=== PATIENT | male | born 1985 | race Caucasian/White ===

== ENCOUNTER 2016-11-18 10:30 | Inpatient (IN) | payer MEDICARE, OTHER ==
[~2016-11-18] VITALS: Ht 170.2 cm; Wt 84.9 kg
[~2016-11-18 10:30] MED LIST: ALBU6.7H INH; ALBU8.5H5 INH; ALPR0.254 PO; ASCO10004 PO; BUTA1CAP60 PO; BUTA1CAP8 PO; CHLO1LIQ PO; CHOL5000 PO; CIPR500T3 PO; CITA20TA5 PO; COLE1TAB4 PO; CYCL-259 PO; DICY20TA3 PO; DOCU-144 PO; DOXY100C2 PO; DOXY100T PO; ESCI20TA10 PO; FLUO20TA25 PO; HYDR-3144 PO; HYDR-3241 PO; IBUP200C PO; LISI5TAB7 PO; LOPE2TAB18 PO; MELA3TAB PO; OFLO5DRO7 OTIC; OMEP-110 PO; ONDA-39 PO; ONDA4TAB7 PO; OXYC5CAP4 PO; PANT40TA5 PO; QUET25TA PO; RIFA200T3 PO; SULF1TAB24 PO; TAMS0.4C2 PO; TOPI100C5 PO; [UNRECOGNIZED DRUG - OTHER] PO
[2016-11-18] MEDS ORDERED: SODIUM CHLORIDE FLUSH 10ML SYR IVF ONE (12:00)
[2016-11-18] MEDS ORDERED: ONDANSETRON 2MG/ML, 2ML IVPush ONE (12:00)
[2016-11-18] MEDS ORDERED: SODIUM CHLORIDE 0.9% 1,000ML IVBOLUS ONE (12:00)
[2016-11-18] MEDS ORDERED: HYDROmorphone 1 MG/ML, 1ML ONE ×2 (12:02→12:58)
[2016-11-18] MEDS ORDERED: ONDANSETRON 2MG/ML, 2ML ONE (12:02)
[2016-11-18] MEDS: HYDROmorphone 1 MG/ML, 1ML IVPush PRN ×2 (12:10→13:08)
[2016-11-18 12:41] LABS: HEMOGLOBIN 14.6 g/dL (13.7-18.0)
[2016-11-18 12:53] LABS: ASPARTATE AMINO TRANSFERASE 16 U/L (15-37); BLOOD UREA NITROGEN 9 mg/dL (7-18)
[2016-11-18 13:15] LABS: PATH.CAST-FLAG NOT PRESENT; SPERM-FLAG PRESENT; SRC-FLAG NOT PRESENT; XTAL-FLAG NOT PRESENT; YLC-FLAG NOT PRESENT
[2016-11-18] MEDS ORDERED: ESCI5TAB7 PO (13:28)
[2016-11-18] MEDS ORDERED: LUBI8CAP3 PO (13:38)
[2016-11-18] MEDS ORDERED: LISI5TAB7 PO (13:39)
[2016-11-18] MEDS ORDERED: LEVOFLOXACIN/PMX 500MG/100ML 100 ML IV ONE (14:14)
[2016-11-18] MEDS ORDERED: OXYcodone/APAP 10/325MG TABLET ONE (14:21)
[2016-11-18] MEDS ORDERED: LEVOFLOXACIN/PMX 500MG/100ML 100 ML ONE (14:21)
[2016-11-18] MEDS ORDERED: OXYcodone/APAP 10/325MG TABLET PO ONE (14:30)
[2016-11-18] MEDS ORDERED: NITROFURANTOIN (MACROBID) 100 MG CAPSULE PO ONE (15:30)
[2016-11-18 16:00] VITALS: BP 131/83
[2016-11-18 17:01] VITALS: BP 131/83
[2016-11-18] MEDS ORDERED: LABETALOL 5MG/ML, 20ML IV PRN (17:30)
[2016-11-18] MEDS ORDERED: BISACODYL 10 MG SUPP PR PRN (17:30)
[2016-11-18] MEDS: HYDROmorphone 2 MG/ML, 1ML IV PRN ×2 (17:55→21:09)
[2016-11-18] MEDS: ENOXAPARIN 40 MG/0.4 ML SQ SCH (17:55)
[2016-11-18] MEDS: LACTOBACILLUS CHEW TABLET PO SCH ×2 (18:10→19:46)
[2016-11-18] MEDS: NS + 20MEQ KCL 1,000 ML IV SCH (18:11)
[2016-11-18 19:15] VITALS: BP 109/72
[2016-11-18] MEDS: SULFAMETH./TRIMETHOPRIM DS 800MG/160MG TABLET PO SCH (19:46)
[2016-11-18] MEDS: FAMOTIDINE 20 MG/2 ML IV SCH (19:46)
[2016-11-18] MEDS ORDERED: ALBUTEROL SULFATE 2.5 MG/3 ML ONE (21:25)
[2016-11-18] MEDS ORDERED: ALBUTEROL SULFATE 2.5 MG/3 ML NPPB PRN (22:00)
[2016-11-19 01:16] VITALS: BP 114/70
[2016-11-19] MEDS: NS + 20MEQ KCL 1,000 ML IV SCH ×4 (03:21→23:27)
[2016-11-19 05:50] LABS: BLOOD UREA NITROGEN 5 mg/dL (7-18)
[2016-11-19 05:53] LABS: ASPARTATE AMINO TRANSFERASE 15 U/L (15-37)
[2016-11-19 07:57] VITALS: BP 113/71
[2016-11-19] MEDS: FLUOXETINE 20 MG CAPSULE PO SCH (08:38)
[2016-11-19] MEDS: SULFAMETH./TRIMETHOPRIM DS 800MG/160MG TABLET PO SCH ×2 (08:38→19:56)
[2016-11-19] MEDS: FAMOTIDINE 20 MG/2 ML IV SCH ×2 (08:38→19:56)
[2016-11-19] MEDS: HYDROmorphone 2 MG/ML, 1ML IV PRN ×5 (08:38→22:39)
[2016-11-19] MEDS: LUBIPROSTONE 8 MCG CAPSULE PO SCH (08:39)
[2016-11-19] MEDS: DOXYCYCLINE 100MG TABLET PO SCH (08:39)
[2016-11-19] MEDS: LACTOBACILLUS CHEW TABLET PO SCH ×3 (08:39→20:08)
[2016-11-19] MEDS: LISINOPRIL 5 MG TABLET PO SCH (08:39)
[2016-11-19] MEDS: TAMSULOSIN 0.4 MG CAP.ER.24H PO SCH (08:39)
[2016-11-19] MEDS: TOPIRAMATE 100 MG PO SCH (09:00)
[2016-11-19] MEDS: ONDANSETRON 2MG/ML, 2ML IVP PRN ×2 (10:17→18:36)
[2016-11-19 14:50] VITALS: BP 120/79
[2016-11-19] MEDS: ENOXAPARIN 40 MG/0.4 ML SQ SCH (18:36)
[2016-11-19 19:10] VITALS: BP 103/68
[2016-11-19] MEDS ORDERED: CALCIUM CARBONATE 500 MG TAB.CHEW PO ONE (22:30)
[2016-11-20 01:46] VITALS: BP 95/55
[2016-11-20] MEDS: HYDROmorphone 2 MG/ML, 1ML IV PRN ×2 (01:52→06:08)
[2016-11-20 05:50] LABS: BLOOD UREA NITROGEN 5 mg/dL (7-18)
[2016-11-20 07:48] VITALS: BP 109/62
[2016-11-20] MEDS ORDERED: ONDANSETRON ODT 4 MG PO PRN (08:00)
[2016-11-20] MEDS ORDERED: PANTOPROZOLE 40MG TABLET PO SCH (08:00)
[2016-11-20] MEDS: TOPIRAMATE 100 MG PO SCH (09:00)
[2016-11-20] MEDS: TAMSULOSIN 0.4 MG CAP.ER.24H PO SCH (09:01)
[2016-11-20] MEDS: LACTOBACILLUS CHEW TABLET PO SCH ×2 (09:01→14:56)
[2016-11-20] MEDS: SULFAMETH./TRIMETHOPRIM DS 800MG/160MG TABLET PO SCH (09:01)
[2016-11-20] MEDS: DOXYCYCLINE 100MG TABLET PO SCH (09:01)
[2016-11-20] MEDS: LUBIPROSTONE 8 MCG CAPSULE PO SCH (09:01)
[2016-11-20] MEDS: FLUOXETINE 20 MG CAPSULE PO SCH (09:01)
[2016-11-20] MEDS: LISINOPRIL 5 MG TABLET PO SCH (09:04)
[2016-11-20 11:34] LABS: IS PT STATUS REG ER OR PRE ER? NO
[2016-11-20] MEDS ORDERED: HYDROcodone/APAP 5/325 TABLET PO PRN (13:30)
[2016-11-20 14:12] VITALS: BP 103/53
[2016-11-20 14:48] LABS: IS PT STATUS REG ER OR PRE ER? NO
[2016-11-20] MEDS ORDERED: SULF1TAB3 PO (15:07)
== END 2016-11-20 17:38 | disposition home or self-care (01) | DRG 690 ==
LOC: ED 13:42 → EDIP 15:19 → 3NE 15:57
DX: N30.90 Cystitis, unspecified without hematuria (principal); F44.9 Dissociative and conversion disorder, unspecified; E87.6 Hypokalemia; F41.1 Generalized anxiety disorder; I10 Essential (primary) hypertension; J45.909 Unspecified asthma, uncomplicated; K21.9 Gastro-esophageal reflux disease without esophagitis; N40.0 Benign prostatic hyperplasia without lower urinary tract symptoms; R10.31 Right lower quadrant pain; E87.8 Other disorders of electrolyte and fluid balance, not elsewhere classified; F32.9 Major depressive disorder, single episode, unspecified; M54.5 Low back pain; G43.909 Migraine, unspecified, not intractable, without status migrainosus; G89.29 Other chronic pain; K58.0 Irritable bowel syndrome with diarrhea; Z82.49 Family history of ischemic heart disease and other diseases of the circulatory system; Z79.891 Long term (current) use of opiate analgesic; Z86.14 Personal history of Methicillin resistant Staphylococcus aureus infection; Z86.19 Personal history of other infectious and parasitic diseases; Z87.11 Personal history of peptic ulcer disease; Z90.49 Acquired absence of other specified parts of digestive tract; Z90.89 Acquired absence of other organs; Z88.6 Allergy status to analgesic agent; Z88.1 Allergy status to other antibiotic agents; Z88.5 Allergy status to narcotic agent; Z88.0 Allergy status to penicillin; Z88.8 Allergy status to other drugs, medicaments and biological substances
CPT/HCPCS: 36415; 74176; 76700; 80048; 80053; 81001; 83605; 83690; 83735; 84100; 84145; 84484; 85025; 87040; 87046; 87086; 87324; 87899; 89055; 93005; 96361; 96374; 96375; 96376; J1170; J1650; J2405; J3480; J7613; J7030; S0028

== ENCOUNTER 2017-01-04 00:50 | Emergency (ER) | payer MEDICARE, OTHER ==
[~2017-01-04] VITALS: Ht 170.2 cm; Wt 83.6 kg
[~2017-01-04 00:50] MED LIST changes: +ESCI5TAB7 PO; +LUBI8CAP3 PO; +SULF1TAB3 PO
[2017-01-04] MEDS ORDERED: OMNIPAQUE 350 MG/ML, 100ML BOTTLE ONE (01:11)
[2017-01-04] MEDS ORDERED: SODIUM CHLORIDE 0.9% 1,000ML IVBOLUS ONE (01:30)
[2017-01-04] MEDS ORDERED: SODIUM CHLORIDE FLUSH 10ML SYR IVF ONE (01:30)
[2017-01-04] MEDS ORDERED: FAMOTIDINE 20 MG/2 ML IVP ONE (01:30)
[2017-01-04] MEDS ORDERED: ONDANSETRON 2MG/ML, 2ML IVPush ONE (01:30)
[2017-01-04] MEDS ORDERED: ONDANSETRON 2MG/ML, 2ML ONE (02:14)
[2017-01-04] MEDS ORDERED: FAMOTIDINE 20 MG/2 ML ONE (02:14)
[2017-01-04 02:41] LABS: ASPARTATE AMINO TRANSFERASE 18 U/L (15-37); BLOOD UREA NITROGEN 8 mg/dL (7-18)
[2017-01-04] MEDS ORDERED: [UNRECOGNIZED DRUG - CODE] PO (03:00)
[2017-01-04] MEDS ORDERED: LACT1CAP43 PO (03:01)
[2017-01-04] MEDS ORDERED: TOPI100C PO (03:04)
[2017-01-04 04:13] VITALS: BP 113/70
== END 2017-01-04 04:15 | disposition home or self-care (01) ==
LOC: ED 01:13
DX: R19.7 Diarrhea, unspecified (principal); R11.2 Nausea with vomiting, unspecified; R10.13 Epigastric pain; N40.0 Benign prostatic hyperplasia without lower urinary tract symptoms; K21.9 Gastro-esophageal reflux disease without esophagitis; Z90.49 Acquired absence of other specified parts of digestive tract; Z88.0 Allergy status to penicillin
CPT/HCPCS: 36415; 74177; 76700; 80053; 81003; 83690; 85025; 93005; 96361; 96374; 96375; 99285; J2405; J7030; Q9967; S0028

== ENCOUNTER 2017-01-14 17:25 | Emergency (ER) | payer MEDICARE ==
[~2017-01-14] VITALS: Ht 170.2 cm; Wt 82.9 kg
[~2017-01-14 17:25] MED LIST changes: +LACT1CAP43 PO; +TOPI100C PO; +[UNRECOGNIZED DRUG - CODE] PO
[2017-01-14 17:34] VITALS: BP 124/82
[2017-01-14] MEDS ORDERED: DIPHENHYDRAMINE 25 MG CAPSULE PO ONE (18:30)
[2017-01-14] MEDS ORDERED: FAMOTIDINE 20 MG TABLET PO ONE (18:30)
[2017-01-14] MEDS ORDERED: DEXAMETHASONE 4 MG TABLET PO ONE (19:00)
[2017-01-14] MEDS ORDERED: DIPHENHYDRAMINE 25 MG CAPSULE ONE (19:13)
[2017-01-14] MEDS ORDERED: FAMOTIDINE 20 MG TABLET ONE (19:14)
[2017-01-14] MEDS ORDERED: DEXAMETHASONE 4 MG TABLET ONE (19:14)
[2017-01-14] MEDS ORDERED: ALBUTEROL/IPRATROPIUM 2.5MG/0.5MG, 3 ML ONE (19:27)
[2017-01-14] MEDS ORDERED: ALBUTEROL/IPRATROPIUM 2.5MG/0.5MG, 3 ML NPPB ONE (19:30)
== END 2017-01-14 20:47 | disposition home or self-care (01) ==
LOC: ED 20:41
DX: T78.40XA Allergy, unspecified, initial encounter (principal); R21 Rash and other nonspecific skin eruption; J20.9 Acute bronchitis, unspecified; J45.31 Mild persistent asthma with (acute) exacerbation; Z88.0 Allergy status to penicillin; K21.9 Gastro-esophageal reflux disease without esophagitis; Z90.49 Acquired absence of other specified parts of digestive tract; Z88.1 Allergy status to other antibiotic agents; Z88.6 Allergy status to analgesic agent; Z88.8 Allergy status to other drugs, medicaments and biological substances; X58.XXXA Exposure to other specified factors, initial encounter
CPT/HCPCS: 71020; 94640; 99284; Q0163; J7620

== ENCOUNTER 2018-07-14 15:48 | Emergency (ER) | payer MEDICAID, MEDICARE ==
[~2018-07-14] VITALS: Ht 170.2 cm; Wt 87.1 kg
[~2018-07-14 15:48] MED LIST changes: -CITA20TA5 PO; +CITA20TA6 PO; -COLE1TAB4 PO; +COLE1TAB5 PO; -HYDR-3144 PO; +HYDR-3245 PO; +IBUP-1623 PO; -IBUP200C PO; -LUBI8CAP3 PO; +LUBI8CAP4 PO; -MELA3TAB PO; +MELA3TAB2 PO; -ONDA-39 PO; +ONDA4TAB12 PO; +OXYC5CAP2 PO; -OXYC5CAP4 PO; -RIFA200T3 PO; +RIFA200T5 PO; +SULF-169 PO; -SULF1TAB3 PO; -TOPI100C PO; +TOPI100C6 PO
[2018-07-14 17:23] LABS: BASOPHILS # (AUTO) 0.08 x10^3/uL (0-0.1); BASOPHILS % (AUTO) 1 % (0-1); EOSINOPHILS # (AUTO) 0.01 x10^3/uL (0-0.4); EOSINOPHILS % (AUTO) 0 % (1-7); HCT (SEDRATE) 41.9 % (39.2-51.8); LYMPHOCYTES # (AUTO) 4.21 x10^3/uL (1-3.4); LYMPHOCYTES % (AUTO) 25 % (22-44); MD NO; MEAN CORPUSCULAR HEMOGLOBIN 31.7 pg (27.5-34.5); MEAN CORPUSCULAR HGB CONC 33.6 g/dL (33.2-36.2); MEAN CORPUSCULAR VOLUME 94.1 fL (81-97); MONOCYTES # (AUTO) 0.81 x10^3/uL (0.2-0.8); MONOCYTES % (AUTO) 5 % (2-9); NEUTROPHILS # (AUTO) 12.02 x10^3/uL (1.8-6.8); NEUTROPHILS % (AUTO) 70 % (42-75); PLATELET COUNT 283 x10^3/uL (130-400); RED CELL DISTRIBUTION WIDTH 14.8 % (9.4-14.8)
[2018-07-14 17:34] LABS: ANION GAP 9 mmol/L (5-15); C-REACTIVE PROTEIN, QUANT 0.39 mg/dL (0.02-0.49); CALCIUM 8.7 mg/dL (8.5-10.1); CHLORIDE 108 mmol/L (98-107); CREATININE 1.05 mg/dL (0.7-1.3)
[2018-07-14] MEDS ORDERED: OXYcodone IR 5MG TABLET ONE (18:42)
[2018-07-14] MEDS ORDERED: LORazepam 1MG TABLET ONE (18:43)
[2018-07-14] MEDS ORDERED: LORazepam 1MG TABLET PO ONE (19:00)
[2018-07-14] MEDS ORDERED: OXYcodone IR 5MG TABLET PO ONE (19:00)
[2018-07-14] MEDS ORDERED: HYDROmorphone 2 MG/ML, 1ML ONE (19:45)
[2018-07-14] MEDS ORDERED: HYDROmorphone 1 MG/ML, 1ML IM ONE (20:00)
[2018-07-14 20:48] VITALS: BP 138/70
[2018-07-15] MEDS ORDERED: GABA-827 PO (13:05)
[2018-07-15] MEDS ORDERED: COLE1TAB2 PO (13:05)
[2018-07-15] MEDS ORDERED: ESCI10TA10 PO (13:05)
[2018-07-15] MEDS ORDERED: VENTOLIN HFA INH (13:05)
[2018-07-15] MEDS ORDERED: FAMO-79 PO (13:05)
== END 2018-07-14 21:33 | disposition home or self-care (01) ==
LOC: ED 16:30
DX: M54.16 Radiculopathy, lumbar region (principal); G89.29 Other chronic pain; F32.9 Major depressive disorder, single episode, unspecified; F41.1 Generalized anxiety disorder; J45.909 Unspecified asthma, uncomplicated; K21.9 Gastro-esophageal reflux disease without esophagitis; Z90.49 Acquired absence of other specified parts of digestive tract
CPT/HCPCS: 36415; 72148; 80048; 85025; 85651; 86140; 96372; 99284; J1170

== ENCOUNTER 2018-07-15 09:40 | Observation (INO) | payer MEDICARE ==
[~2018-07-15] VITALS: Ht 170.2 cm; Wt 88.0 kg
[2018-07-15] MEDS ORDERED: HYDROmorphone 2 MG/ML, 1ML ONE (10:58)
[2018-07-15] MEDS ORDERED: HYDROmorphone 2 MG/ML, 1ML IM ONE (11:00)
[2018-07-15] MEDS ORDERED: ONDANSETRON ODT 4 MG PO ONE (11:00)
[2018-07-15] MEDS ORDERED: SODIUM CHLORIDE FLUSH 10ML SYR IVF ONE (12:00)
[2018-07-15] MEDS ORDERED: HYDROmorphone 1 MG/ML, 1ML IVPush PRN (12:00)
[2018-07-15 12:52] LABS: BASOPHILS # (AUTO) 0.01 x10^3/uL (0-0.1); BASOPHILS % (AUTO) 0 % (0-1); EOSINOPHILS # (AUTO) 0.03 x10^3/uL (0-0.4); EOSINOPHILS % (AUTO) 0 % (1-7); LYMPHOCYTES % (AUTO) 29 % (22-44); MD NO; MEAN CORPUSCULAR HGB CONC 33.2 g/dL (33.2-36.2); MEAN CORPUSCULAR VOLUME 93.4 fL (81-97); MEAN PLATELET VOLUME 7.9 fL (7.4-10.4); MONOCYTES # (AUTO) 0.86 x10^3/uL (0.2-0.8); MONOCYTES % (AUTO) 6 % (2-9); NEUTROPHILS # (AUTO) 10.05 x10^3/uL (1.8-6.8); NEUTROPHILS % (AUTO) 65 % (42-75); PLATELET COUNT 281 x10^3/uL (130-400); RED BLOOD COUNT 4.46 x10^6/uL (4.38-5.82); RED CELL DISTRIBUTION WIDTH 14.6 % (9.4-14.8)
[2018-07-15 12:54] LABS: HCT (SEDRATE) 41.7 % (39.2-51.8)
[2018-07-15] MEDS ORDERED: LIDODERM 5% PATCH TD PRN (13:00)
[2018-07-15] MEDS ORDERED: ONDANSETRON 2MG/ML, 2ML IVPush PRN (13:00)
[2018-07-15] MEDS ORDERED: ONDANSETRON ODT 4 MG PO PRN (13:00)
[2018-07-15 13:05] LABS: ALANINE AMINOTRANSFERASE 37 U/L (12-78); ALBUMIN 4.2 g/dL (3.4-5.0); ANION GAP 7 mmol/L (5-15); CALCIUM 8.7 mg/dL (8.5-10.1); CHLORIDE 107 mmol/L (98-107); CREATININE 1.09 mg/dL (0.7-1.3)
[2018-07-15] MEDS ORDERED: FAMO-79 PO (13:05)
[2018-07-15] MEDS ORDERED: ESCI10TA10 PO (13:05)
[2018-07-15] MEDS ORDERED: VENTOLIN HFA INH (13:05)
[2018-07-15] MEDS ORDERED: GABA-827 PO (13:05)
[2018-07-15] MEDS ORDERED: COLE1TAB2 PO (13:05)
[2018-07-15 13:07] LABS: ALKALINE PHOSPHATASE 72 U/L (45-117); BILIRUBIN,TOTAL 0.6 mg/dL (0.2-1.0); TOTAL PROTEIN 7.9 g/dL (6.4-8.2)
[2018-07-15 13:49] VITALS: BP 133/84
[2018-07-15] MEDS ORDERED: ALBUTEROL SULFATE 2.5 MG/3 ML NPPB SCH (14:00)
[2018-07-15] MEDS ORDERED: ENOXAPARIN 40 MG/0.4 ML SQ SCH (14:00)
[2018-07-15] MEDS ORDERED: SODIUM CHLORIDE 0.9% 1,000ML IVBOLUS ONE (14:30)
[2018-07-15 15:29] LABS: MICROSCOPIC AUTO
[2018-07-15 15:30] VITALS: BP 133/84
[2018-07-15 15:34] LABS: CULTURE INDICATED? YES
[2018-07-15] MEDS: BUSPIRONE 10 MG TABLET PO SCH ×2 (15:37→20:23)
[2018-07-15] MEDS: GABAPENTIN 300 MG CAPSULE PO SCH ×2 (15:37→20:23)
[2018-07-15] MEDS: IBUPROFEN 200 MG TABLET PO PRN ×2 (15:38→22:05)
[2018-07-15 15:40] LABS: AMPHETAMINE SCREEN, URINE Negative (Negative); BARBITURATE SCREEN, URINE Negative (Negative); BENZODIAZEPINE SCREEN, URINE Negative (Negative); CANNABINOID SCREEN, URINE Negative (Negative); COCAINE SCREEN, URINE Negative (Negative); METHADONE SCREEN, URINE Negative (Negative); OPIATE SCREEN, URINE Positive (Negative)
[2018-07-15] MEDS: ACETAMINOPHEN 500 MG TABLET PO PRN (17:48)
[2018-07-15 18:26] LABS: CLOSTRIDIUM DIFFICILE ANTIGEN NEGATIVE; CLOSTRIDIUM DIFFICILE TOXIN NEGATIVE (Negative)
[2018-07-15 20:34] VITALS: BP 118/77
[2018-07-15 21:49] VITALS: BP 121/77
[2018-07-16] MEDS: ACETAMINOPHEN 500 MG TABLET PO PRN ×2 (02:32→10:05)
[2018-07-16 02:41] VITALS: BP 93/58
[2018-07-16] MEDS: IBUPROFEN 200 MG TABLET PO PRN (06:27)
[2018-07-16 07:27] VITALS: BP 96/59
[2018-07-16 08:07] LABS: ANION GAP 5 mmol/L (5-15); CALCIUM 8.2 mg/dL (8.5-10.1); CHLORIDE 110 mmol/L (98-107); CREATININE 0.97 mg/dL (0.7-1.3)
[2018-07-16 08:09] LABS: MEAN CORPUSCULAR HEMOGLOBIN 31.2 pg (27.5-34.5); MEAN CORPUSCULAR HGB CONC 33.3 g/dL (33.2-36.2); MEAN CORPUSCULAR VOLUME 93.8 fL (81-97); PLATELET COUNT 246 x10^3/uL (130-400); RED BLOOD COUNT 4.07 x10^6/uL (4.38-5.82); RED CELL DISTRIBUTION WIDTH 14.4 % (9.4-14.8)
[2018-07-16 08:28] LABS: BASOPHILS # (AUTO) 0.01 x10^3/uL (0-0.1); BASOPHILS % (AUTO) 0 % (0-1); EOSINOPHILS # (AUTO) 0.16 x10^3/uL (0-0.4); EOSINOPHILS % (AUTO) 2 % (1-7); LYMPHOCYTES # (AUTO) 3.13 x10^3/uL (1-3.4); LYMPHOCYTES % (AUTO) 45 % (22-44); MD SCAN; MONOCYTES # (AUTO) 0.48 x10^3/uL (0.2-0.8); MONOCYTES % (AUTO) 7 % (2-9); NEUTROPHILS # (AUTO) 3.18 x10^3/uL (1.8-6.8); NEUTROPHILS % (AUTO) 46 % (42-75)
[2018-07-16] MEDS ORDERED: GABA300C10 PO (08:45)
[2018-07-16] MEDS ORDERED: IBUP-1484 PO (08:45)
[2018-07-16] MEDS ORDERED: LIDO700A20 TD (08:46)
[2018-07-16] MEDS ORDERED: CITALOPRAM 10 MG TABLET PO SCH (09:00)
[2018-07-16] MEDS ORDERED: ASCORBIC ACID 500 MG TABLET PO SCH (09:00)
[2018-07-16] MEDS ORDERED: FAMOTIDINE 20 MG TABLET PO SCH (09:00)
[2018-07-16] MEDS ORDERED: CHOLECALCIFEROL 5,000u TAB PO SCH (09:00)
[2018-07-16] MEDS: GABAPENTIN 300 MG CAPSULE PO SCH (10:04)
[2018-07-16] MEDS: BUSPIRONE 10 MG TABLET PO SCH (10:04)
== END 2018-07-16 12:05 | disposition home or self-care (01) ==
LOC: ED 10:08 → 3NW 12:50
PROVIDERS: ADMIT Hospitalist; ATTEND Hospitalist
DX: M54.5 Low back pain (principal); K58.0 Irritable bowel syndrome with diarrhea; R19.7 Diarrhea, unspecified; R65.10 Systemic inflammatory response syndrome (SIRS) of non-infectious origin without acute organ dysfunction; J45.909 Unspecified asthma, uncomplicated; F41.1 Generalized anxiety disorder; F32.9 Major depressive disorder, single episode, unspecified; G89.29 Other chronic pain; K21.9 Gastro-esophageal reflux disease without esophagitis; R20.2 Paresthesia of skin; N40.0 Benign prostatic hyperplasia without lower urinary tract symptoms; Z82.49 Family history of ischemic heart disease and other diseases of the circulatory system; Z86.14 Personal history of Methicillin resistant Staphylococcus aureus infection
CPT/HCPCS: 36415; 71045; 80048; 80053; 80307; 81001; 83605; 84145; 85025; 85651; 87040; 87086; 87324; 96372; 97163; 97166; 97535; 99284; G0378; G8978; G8979; G8980; J1170; J1650; J7030; Q0162; Q0177

== ENCOUNTER 2018-11-22 17:31 | Emergency (ER) | payer MEDICARE ==
[~2018-11-22] VITALS: Ht 170.2 cm; Wt 87.6 kg
[~2018-11-22 17:31] MED LIST changes: +COLE1TAB2 PO; +ESCI10TA10 PO; +FAMO-79 PO; +GABA-827 PO; +GABA300C10 PO; +IBUP-1484 PO; +LIDO700A20 TD; -QUET25TA PO; +QUET25TA7 PO; +VENTOLIN HFA INH
[2018-11-22 18:15] LABS: BASOPHILS # (AUTO) 0.04 x10^3/uL (0-0.1); BASOPHILS % (AUTO) 0 % (0-1); EOSINOPHILS # (AUTO) 0.05 x10^3/uL (0-0.4); EOSINOPHILS % (AUTO) 1 % (1-7); LYMPHOCYTES # (AUTO) 3.36 x10^3/uL (1-3.4); LYMPHOCYTES % (AUTO) 33 % (22-44); MD NO; MEAN CORPUSCULAR HEMOGLOBIN 32.4 pg (27.5-34.5); MEAN CORPUSCULAR HGB CONC 34.6 g/dL (33.2-36.2); MEAN CORPUSCULAR VOLUME 93.8 fL (81-97); MEAN PLATELET VOLUME 8.3 fL (7.4-10.4); MONOCYTES # (AUTO) 0.89 x10^3/uL (0.2-0.8); MONOCYTES % (AUTO) 9 % (2-9); NEUTROPHILS # (AUTO) 5.74 x10^3/uL (1.8-6.8); NEUTROPHILS % (AUTO) 57 % (42-75); PLATELET COUNT 196 x10^3/uL (130-400); RED BLOOD COUNT 4.86 x10^6/uL (4.38-5.82); RED CELL DISTRIBUTION WIDTH 13.9 % (9.4-14.8)
[2018-11-22 18:25] LABS: ALANINE AMINOTRANSFERASE 75 U/L (12-78); ALBUMIN 4.5 g/dL (3.4-5.0); ANION GAP 11 mmol/L (5-15); CALCIUM 8.9 mg/dL (8.5-10.1); CHLORIDE 106 mmol/L (98-107); CREATININE 1.03 mg/dL (0.7-1.3)
[2018-11-22 18:28] LABS: ALKALINE PHOSPHATASE 74 U/L (45-117); BILIRUBIN,TOTAL 0.6 mg/dL (0.2-1.0); TOTAL PROTEIN 8.4 g/dL (6.4-8.2)
[2018-11-22] MEDS ORDERED: OMNIPAQUE 350 MG/ML, 100ML BOTTLE ONE (20:00)
[2018-11-22] MEDS ORDERED: HYDROmorphone 2 MG/ML, 1ML IVPush PRN (21:30)
--- NOTE | 2018-11-22 21:30 | NUR ---
ASSUMED CARE OF PT. PT HERE WITH GERNERALIZED ABD PAIN AND MULTIPLE LOOSE STOOLS SINCE COMING HOME FROM [place] [facility] ON THURSDAY. PT WITH HX OF C-DIFF. MILD AMOUNT OF DISTRESS AND DISCOMFORT NOTED. PT ON CONT. PULSE OX AND BP. POC DISCUSSED. WILL CONTINUE TO MONITOR.
[2018-11-22] MEDS ORDERED: HYDROmorphone 1 MG/ML, 1ML VIAL ONE (22:00)
--- NOTE | 2018-11-22 22:00 | NUR ---
IV STARTED AFTER MULTIPLE ATTEMPTS.
[2018-11-22 22:28] LABS: MICROSCOPIC INDICATED
[2018-11-22 22:39] LABS: CULTURE INDICATED? NO
--- NOTE | 2018-11-22 22:42 | NUR ---
PT MEDICATED PER OCT. 5 RIGHTS VERIFIED PRIOR. 3 P'S ADDRESSED. POC UPDATED. WILL CONTINUE TO MONITOR.
--- NOTE | 2018-11-22 23:08 | NUR ---
PT UNABLE TO PROVIDE STOOL SAMPLE. PT GIVEN D/C PAPERWORK. PT VERBAlIZED UNDERSTANDING. PT AMBULATED TO D/C WITH STEADY GAIT.
[2018-11-22 23:10] VITALS: BP 122/75
== END 2018-11-22 23:11 | disposition home or self-care (01) ==
LOC: ED 22:07
DX: R19.7 Diarrhea, unspecified (principal); R10.84 Generalized abdominal pain; G43.909 Migraine, unspecified, not intractable, without status migrainosus
CPT/HCPCS: 36415; 74177; 80053; 81001; 83690; 85025; 96374; 99284; J1170; Q9967

== ENCOUNTER → 2018-12-02 | Outpatient (CLI) | payer MEDICARE | END | disposition home or self-care (01) | LOC: CFH 08:40 | PROVIDERS: ATTEND Specialist | DX: H66.92 Otitis media, unspecified, left ear (principal) | CPT/HCPCS: 70480 ==

== ENCOUNTER 2018-12-10 15:35 | Emergency (ER) | payer MEDICARE ==
[~2018-12-10] VITALS: Ht 175.3 cm; Wt 88.0 kg
[2018-12-10 16:17] VITALS: BP 125/75
[2018-12-10] MEDS ORDERED: ALBU18HF INH (16:17)
[2018-12-10] MEDS ORDERED: OMEP-110 PO (16:17)
[2018-12-10 16:21] LABS: BASOPHILS # (AUTO) 0.03 x10^3/uL (0-0.1); BASOPHILS % (AUTO) 0 % (0-1); EOSINOPHILS % (AUTO) 0 % (1-7); LYMPHOCYTES # (AUTO) 3.06 x10^3/uL (1-3.4); LYMPHOCYTES % (AUTO) 29 % (22-44); MD NO; MEAN CORPUSCULAR HGB CONC 34.2 g/dL (33.2-36.2); MEAN CORPUSCULAR VOLUME 93.6 fL (81-97); MEAN PLATELET VOLUME 7.9 fL (7.4-10.4); MONOCYTES # (AUTO) 0.51 x10^3/uL (0.2-0.8); MONOCYTES % (AUTO) 5 % (2-9); NEUTROPHILS # (AUTO) 6.98 x10^3/uL (1.8-6.8); NEUTROPHILS % (AUTO) 66 % (42-75); PLATELET COUNT 284 x10^3/uL (130-400); RED BLOOD COUNT 4.65 x10^6/uL (4.38-5.82); RED CELL DISTRIBUTION WIDTH 14.1 % (9.4-14.8)
[2018-12-10 16:30] LABS: ALBUMIN 4.7 g/dL (3.4-5.0); ANION GAP 8 mmol/L (5-15); CHLORIDE 108 mmol/L (98-107); CREATININE 1.07 mg/dL (0.7-1.3)
[2018-12-10] MEDS ORDERED: ALBUTEROL/IPRATROPIUM 2.5MG/0.5MG, 3 ML NPPB ONE (16:30)
[2018-12-10 16:34] LABS: TROPONIN I < 0.015 ng/mL (0.000-0.045)
[2018-12-10] MEDS ORDERED: ALBUTEROL/IPRATROPIUM 2.5MG/0.5MG, 3 ML ONE (16:41)
--- NOTE | 2018-12-10 17:12 | NUR ---
Patient/Caregiver given discharge instructions and they have confirmed that they understand the instructions. Patient ambulatory with steady gait.
== END 2018-12-10 17:13 | disposition home or self-care (01) ==
LOC: ED 16:21
DX: R07.89 Other chest pain (principal); R51 Headache; F32.9 Major depressive disorder, single episode, unspecified; K21.9 Gastro-esophageal reflux disease without esophagitis; J45.909 Unspecified asthma, uncomplicated; G43.909 Migraine, unspecified, not intractable, without status migrainosus; Z88.8 Allergy status to other drugs, medicaments and biological substances; Z88.1 Allergy status to other antibiotic agents; Z88.0 Allergy status to penicillin; Z86.14 Personal history of Methicillin resistant Staphylococcus aureus infection
CPT/HCPCS: 36415; 71045; 80048; 82040; 84484; 85025; 93005; 99284

== ENCOUNTER 2018-12-13 18:02 | Emergency (ER) | payer MEDICARE ==
[~2018-12-13] VITALS: Ht 175.3 cm; Wt 84.3 kg
[~2018-12-13 18:02] MED LIST changes: +ALBU18HF INH
[2018-12-13 18:46] LABS: BASOPHILS # (AUTO) 0.02 x10^3/uL (0-0.1); BASOPHILS % (AUTO) 0 % (0-1); EOSINOPHILS # (AUTO) 0.03 x10^3/uL (0-0.4); EOSINOPHILS % (AUTO) 0 % (1-7); LYMPHOCYTES # (AUTO) 4.03 x10^3/uL (1-3.4); LYMPHOCYTES % (AUTO) 35 % (22-44); MD NO; MEAN CORPUSCULAR HEMOGLOBIN 32.2 pg (27.5-34.5); MEAN CORPUSCULAR HGB CONC 34.5 g/dL (33.2-36.2); MEAN CORPUSCULAR VOLUME 93.4 fL (81-97); MEAN PLATELET VOLUME 8.3 fL (7.4-10.4); MONOCYTES # (AUTO) 0.55 x10^3/uL (0.2-0.8); MONOCYTES % (AUTO) 5 % (2-9); NEUTROPHILS # (AUTO) 7.04 x10^3/uL (1.8-6.8); NEUTROPHILS % (AUTO) 60 % (42-75); PLATELET COUNT 276 x10^3/uL (130-400); RED BLOOD COUNT 4.76 x10^6/uL (4.38-5.82); RED CELL DISTRIBUTION WIDTH 13.9 % (9.4-14.8)
[2018-12-13] MEDS ORDERED: HYDROcodone/APAP 5/325 TABLET ONE (18:54)
[2018-12-13] MEDS ORDERED: HYDROcodone/APAP 5/325 TABLET PO ONE (19:00)
[2018-12-13 19:08] LABS: ALBUMIN 4.8 g/dL (3.4-5.0); ANION GAP 7 mmol/L (5-15); CALCIUM 9.1 mg/dL (8.5-10.1); CHLORIDE 109 mmol/L (98-107)
[2018-12-13 19:11] LABS: MICROSCOPIC NOT IND
[2018-12-13 19:11] LABS: ALANINE AMINOTRANSFERASE 59 U/L (12-78); ALKALINE PHOSPHATASE 80 U/L (45-117); BILIRUBIN,TOTAL 0.4 mg/dL (0.2-1.0); CREATININE 1.15 mg/dL (0.7-1.3); TOTAL PROTEIN 8.6 g/dL (6.4-8.2)
[2018-12-13 19:17] LABS: CULTURE INDICATED? NO
[2018-12-13 19:28] VITALS: BP 130/85
--- NOTE | 2018-12-13 19:43 | NUR ---
RN TO BEDSIDE TO DC PT. PT IRRATE, "I AM GOING AFTER YOUR LICENSE. I'M GOING AFTER THAT DOCTOR'S LICENSE. YOU DIDN'T DO AN XRAY. YOU DIDN' T DO A CT OR MRI. I'VE HAD BACK SURGERIES, I KNOW THE RULES". PT MADE AWARE THAT HE HAS BEEN PROVIDED PAIN MEDICATIONS AND HAS BEEN DEEMED APPROPRIATE AND SAFE FOR DISCHARGE. PT ASKED TO DRESS. PT STATES, "I'M CALLING MY SEPARATOR OPERATOR [employer]. I AM STILL IN PAIN". DC EDUCATION PROVIDED. PT STATES, "I DON'T WANT TO TALK TO YOU".
--- NOTE | 2018-12-13 19:58 | NUR ---
PT TO WHEELCHAIR AND WHEELED TO DC WITH RN. PT REPORTS THAT HE WILL "CALL MY WAFER FABRICATION OPERATOR" FOR RIDE HOME.
[2018-12-14] MEDS ORDERED: GABA300C10 PO (11:58)
[2018-12-14] MEDS ORDERED: 5 HTP PO (11:58)
== END 2018-12-13 19:59 | disposition home or self-care (01) ==
LOC: ED 18:58
DX: M54.5 Low back pain (principal); R19.7 Diarrhea, unspecified; I10 Essential (primary) hypertension; E11.9 Type 2 diabetes mellitus without complications; F41.1 Generalized anxiety disorder; J45.909 Unspecified asthma, uncomplicated; K21.9 Gastro-esophageal reflux disease without esophagitis; Z90.49 Acquired absence of other specified parts of digestive tract; Z88.8 Allergy status to other drugs, medicaments and biological substances; Z88.6 Allergy status to analgesic agent; Z88.1 Allergy status to other antibiotic agents; Z88.2 Allergy status to sulfonamides; Z88.0 Allergy status to penicillin
CPT/HCPCS: 36415; 80053; 81003; 85025; 99283

== ENCOUNTER 2018-12-14 11:46 | Inpatient (IN) | payer MEDICARE ==
[~2018-12-14] VITALS: Ht 175.3 cm; Wt 88.9 kg
[2018-12-14] MEDS ORDERED: 5 HTP PO (11:58)
[2018-12-14] MEDS ORDERED: GABA300C10 PO (11:58)
[2018-12-14] MEDS ORDERED: ONDANSETRON 2MG/ML, 2ML ONE ×3 (12:30→15:11)
[2018-12-14] MEDS ORDERED: HYDROmorphone 1 MG/ML, 1ML VIAL ONE ×3 (12:30→15:11)
[2018-12-14] MEDS ORDERED: LORazepam 2 MG/ML, 1ML ONE ×2 (12:30→15:12)
[2018-12-14] MEDS ORDERED: LORazepam 2 MG/ML, 1ML IVPush ONE ×2 (12:30→15:30)
[2018-12-14] MEDS: HYDROmorphone 2 MG/ML, 1ML IVPush PRN ×2 (12:38→13:23)
--- NOTE | 2018-12-14 12:41 | NUR ---
LUNCH RN: PT MEDICATED FOR PAIN PER MAR, PLACED ON SUP O2 TO KEEP SATS WNL. MD TO BEDSIDE FOR ASSESSMENT. NOTED LOWER BACK INCISION RED AND CAUSING PAIN. PT TAKEN TO MRI.
[2018-12-14] MEDS ORDERED: ONDANSETRON 2MG/ML, 2ML IVPush ONE ×3 (13:00→15:30)
--- NOTE | 2018-12-14 13:11 | NUR ---
Pt at imaging at this time.
--- NOTE | 2018-12-14 13:21 | NUR ---
MRI called requesting ED RN to come re-medicate pt for pain so pt can remain still for MRI. Went to MRI and provided pt medication per EMAR for pain. Pt AOX4, NADN, wearing oxygen via NC. Pt appreciative. NADN s/p medication admin.
[2018-12-14] MEDS ORDERED: GADOBUTROL 10 MMOL/10 ML PFS ONE (13:35)
[2018-12-14 14:17] LABS: BASOPHILS # (AUTO) 0.03 x10^3/uL (0-0.1); BASOPHILS % (AUTO) 0 % (0-1); EOSINOPHILS # (AUTO) 0.01 x10^3/uL (0-0.4); EOSINOPHILS % (AUTO) 0 % (1-7); LYMPHOCYTES # (AUTO) 3.14 x10^3/uL (1-3.4); LYMPHOCYTES % (AUTO) 32 % (22-44); MD NO; MEAN CORPUSCULAR HEMOGLOBIN 31.8 pg (27.5-34.5); MEAN CORPUSCULAR HGB CONC 33.8 g/dL (33.2-36.2); MEAN CORPUSCULAR VOLUME 94.2 fL (81-97); MEAN PLATELET VOLUME 8.2 fL (7.4-10.4); MONOCYTES # (AUTO) 0.44 x10^3/uL (0.2-0.8); MONOCYTES % (AUTO) 4 % (2-9); NEUTROPHILS % (AUTO) 64 % (42-75); PLATELET COUNT 264 x10^3/uL (130-400); RED BLOOD COUNT 4.53 x10^6/uL (4.38-5.82)
[2018-12-14 14:26] LABS: ALBUMIN 4.4 g/dL (3.4-5.0); ANION GAP 5 mmol/L (5-15); CHLORIDE 110 mmol/L (98-107); CREATININE 1.04 mg/dL (0.7-1.3); HIGH-SENSITIVITY CRP 0.28 mg/dL (0.02-0.30)
[2018-12-14] MEDS ORDERED: KETAMINE 10 MG/ML, 20ML ONE (14:45)
[2018-12-14] MEDS ORDERED: KETAMINE 100 MG/ML, 5ML IV ONE (15:00)
[2018-12-14] MEDS ORDERED: HYDROmorphone 2 MG/ML, 1ML IV ONE (15:30)
--- NOTE | 2018-12-14 16:53 | NUR ---
Pt requesting "breathing treatment." No breathing treatment orders listed in EMAR. Called admitting doctor and left voicemail.
--- NOTE | 2018-12-14 16:55 | NUR ---
Prior note charted under wrong documentation user login.
--- NOTE | 2018-12-14 16:56 | NUR ---
Pt requesting "breathing treatment." No breathing treatment orders listed in EMAR. Called admitting doctor and left voicemail.
--- NOTE | 2018-12-14 17:06 | NUR ---
Admitting provider returned call and placed orders.
--- NOTE | 2018-12-14 17:13 | NUR ---
Provided report to NANCY Hollis. All questions answered. Pt ready to transfer to floor from ED.
--- NOTE | 2018-12-14 17:31 | NUR ---
Pt left ED and transfered to floor and left with all personal belongings.
[2018-12-14] MEDS: HYDROmorphone 2MG TABLET PO PRN ×2 (17:59→22:07)
[2018-12-14 18:31] VITALS: BP 135/85
[2018-12-14] MEDS: METHOCARBAMOL 500 MG TABLET PO PRN (20:11)
[2018-12-14] MEDS: GABAPENTIN 400 MG CAPSULE PO SCH (20:11)
[2018-12-14] MEDS: TEMPLATE NON-FORMULARY MED. (Albuterol Sulfate (Ventolin Hfa) 90 MCG) INH SCH (20:13)
[2018-12-14] MEDS: ALBUTEROL SULFATE 2.5 MG/3 ML NPPB SCH (21:00)
[2018-12-14] MEDS: IBUPROFEN 800 MG TABLET PO PRN (23:03)
[2018-12-14] MEDS: LIDODERM 5% PATCH TD PRN (23:04)
[2018-12-15 01:44] VITALS: BP 99/60
[2018-12-15 08:15] VITALS: BP 112/72
[2018-12-15] MEDS: OMEPRAZOLE 20 MG CAPSULE.DR PO SCH (08:50)
[2018-12-15] MEDS: TEMPLATE NON-FORMULARY MED. (Albuterol Sulfate (Ventolin Hfa) 90 MCG) INH SCH ×2 (08:50→20:03)
[2018-12-15] MEDS: GABAPENTIN 400 MG CAPSULE PO SCH ×2 (08:50→20:03)
[2018-12-15] MEDS: HYDROmorphone 2MG TABLET PO PRN ×4 (08:50→22:28)
[2018-12-15] MEDS: ALBUTEROL SULFATE 2.5 MG/3 ML NPPB SCH ×2 (10:00→20:07)
[2018-12-15] MEDS: IBUPROFEN 800 MG TABLET PO PRN ×2 (10:16→20:03)
[2018-12-15] MEDS: METHOCARBAMOL 500 MG TABLET PO PRN ×2 (11:33→20:03)
[2018-12-15 13:24] LABS: HCT (SEDRATE) 40.9 % (39.2-51.8)
[2018-12-15] MEDS ORDERED: HYDROmorphone 2MG TABLET PO PRN (13:30)
[2018-12-15] MEDS ORDERED: HYDROmorphone 2MG TABLET ONE (14:26)
[2018-12-15 14:35] VITALS: BP 111/76
[2018-12-15] MEDS: LINEZOLID PMX 600MG/300ML 300 ML IV SCH (14:40)
[2018-12-15 21:00] VITALS: BP 121/64
[2018-12-15] MEDS ORDERED: HYDROmorphone 2MG TABLET PO ONE (22:00)
[2018-12-16] MEDS: TEMPLATE NON-FORMULARY MED. (Albuterol Sulfate (Ventolin Hfa) 90 MCG) INH SCH ×2 (00:10→21:00)
[2018-12-16] MEDS: NITROGLYCERIN 0.4 MG BOTTLE (25 TABS) SL PRN ×3 (00:24→00:45)
[2018-12-16 00:45] VITALS: BP 118/74
[2018-12-16] MEDS ORDERED: ACETAMINOPHEN 325 MG TABLET PO ONE (01:00)
[2018-12-16 01:10] VITALS: BP 101/69
[2018-12-16 01:25] LABS: TROPONIN I < 0.015 ng/mL (0.000-0.045)
[2018-12-16] MEDS: LINEZOLID PMX 600MG/300ML 300 ML IV SCH ×2 (02:30→15:51)
[2018-12-16 05:50] LABS: BASOPHILS # (AUTO) 0.01 x10^3/uL (0-0.1); BASOPHILS % (AUTO) 0 % (0-1); EOSINOPHILS # (AUTO) 0.14 x10^3/uL (0-0.4); EOSINOPHILS % (AUTO) 2 % (1-7); LYMPHOCYTES # (AUTO) 3.92 x10^3/uL (1-3.4); LYMPHOCYTES % (AUTO) 43 % (22-44); MD NO; MEAN CORPUSCULAR HEMOGLOBIN 32.2 pg (27.5-34.5); MEAN CORPUSCULAR HGB CONC 34.3 g/dL (33.2-36.2); MEAN CORPUSCULAR VOLUME 93.9 fL (81-97); MEAN PLATELET VOLUME 8.1 fL (7.4-10.4); MONOCYTES # (AUTO) 0.62 x10^3/uL (0.2-0.8); MONOCYTES % (AUTO) 7 % (2-9); NEUTROPHILS # (AUTO) 4.35 x10^3/uL (1.8-6.8); NEUTROPHILS % (AUTO) 48 % (42-75); PLATELET COUNT 219 x10^3/uL (130-400); RED BLOOD COUNT 4.06 x10^6/uL (4.38-5.82); RED CELL DISTRIBUTION WIDTH 13.8 % (9.4-14.8)
[2018-12-16 05:55] LABS: ALBUMIN 3.8 g/dL (3.4-5.0); ANION GAP 7 mmol/L (5-15); CALCIUM 8.8 mg/dL (8.5-10.1); CHLORIDE 108 mmol/L (98-107); CREATININE 0.96 mg/dL (0.7-1.3)
[2018-12-16] MEDS: GABAPENTIN 400 MG CAPSULE PO SCH ×2 (08:57→21:22)
[2018-12-16] MEDS: OMEPRAZOLE 20 MG CAPSULE.DR PO SCH (08:57)
[2018-12-16] MEDS: ALBUTEROL SULFATE 2.5 MG/3 ML NPPB SCH ×2 (09:00→20:55)
[2018-12-16] MEDS: IBUPROFEN 800 MG TABLET PO PRN ×2 (09:12→19:50)
[2018-12-16] MEDS: METHOCARBAMOL 500 MG TABLET PO PRN ×2 (09:13→19:49)
[2018-12-16 09:16] VITALS: BP 123/75
[2018-12-16] MEDS: HYDROmorphone 2MG TABLET PO PRN ×2 (09:53→21:22)
[2018-12-16] MEDS ORDERED: NITROGLYCERIN 0.4 MG BOTTLE (25 TABS) SL ONE (10:28)
[2018-12-16 12:31] VITALS: BP 122/85
[2018-12-16 19:05] VITALS: BP 117/77
[2018-12-16] MEDS: LIDODERM 5% PATCH TD PRN (23:23)
[2018-12-17 01:20] VITALS: BP 132/81
[2018-12-17] MEDS: HYDROmorphone 2MG TABLET PO PRN ×3 (01:29→11:26)
[2018-12-17] MEDS: LINEZOLID PMX 600MG/300ML 300 ML IV SCH ×2 (02:42→13:55)
[2018-12-17] MEDS: IBUPROFEN 800 MG TABLET PO PRN ×3 (02:42→17:02)
[2018-12-17 06:21] LABS: ALBUMIN 3.7 g/dL (3.4-5.0); ANION GAP 7 mmol/L (5-15); CALCIUM 8.5 mg/dL (8.5-10.1); CHLORIDE 108 mmol/L (98-107); CREATININE 0.91 mg/dL (0.7-1.3)
[2018-12-17 07:34] LABS: BASOPHILS # (AUTO) 0.03 x10^3/uL (0-0.1); BASOPHILS % (AUTO) 0 % (0-1); EOSINOPHILS # (AUTO) 0.29 x10^3/uL (0-0.4); EOSINOPHILS % (AUTO) 3 % (1-7); LYMPHOCYTES # (AUTO) 3.61 x10^3/uL (1-3.4); LYMPHOCYTES % (AUTO) 42 % (22-44); MD NO; MEAN CORPUSCULAR HEMOGLOBIN 31.7 pg (27.5-34.5); MEAN CORPUSCULAR HGB CONC 33.9 g/dL (33.2-36.2); MEAN CORPUSCULAR VOLUME 93.6 fL (81-97); MONOCYTES # (AUTO) 0.64 x10^3/uL (0.2-0.8); MONOCYTES % (AUTO) 8 % (2-9); NEUTROPHILS # (AUTO) 3.99 x10^3/uL (1.8-6.8); NEUTROPHILS % (AUTO) 47 % (42-75); PLATELET COUNT 231 x10^3/uL (130-400); RED BLOOD COUNT 4.51 x10^6/uL (4.38-5.82); RED CELL DISTRIBUTION WIDTH 13.8 % (9.4-14.8)
[2018-12-17 08:00] VITALS: BP 115/74
[2018-12-17] MEDS: GABAPENTIN 400 MG CAPSULE PO SCH ×2 (08:02→20:18)
[2018-12-17] MEDS: OMEPRAZOLE 20 MG CAPSULE.DR PO SCH (08:02)
[2018-12-17] MEDS: METHOCARBAMOL 500 MG TABLET PO PRN ×2 (10:09→17:02)
[2018-12-17] MEDS: TEMPLATE NON-FORMULARY MED. (Albuterol Sulfate (Ventolin Hfa) 90 MCG) INH SCH ×2 (10:45→20:18)
[2018-12-17] MEDS: ALBUTEROL SULFATE 2.5 MG/3 ML NPPB SCH ×2 (11:17→19:45)
[2018-12-17 13:00] VITALS: BP 111/74
[2018-12-17] MEDS ORDERED: GABAPENTIN 100 MG CAPSULE PO PRN (18:00)
[2018-12-17 19:35] VITALS: BP 112/68
[2018-12-18 00:26] VITALS: BP 105/69
[2018-12-18] MEDS: LINEZOLID PMX 600MG/300ML 300 ML IV SCH ×2 (02:43→14:46)
[2018-12-18 05:35] LABS: BASOPHILS # (AUTO) 0.02 x10^3/uL (0-0.1); BASOPHILS % (AUTO) 0 % (0-1); EOSINOPHILS # (AUTO) 0.38 x10^3/uL (0-0.4); EOSINOPHILS % (AUTO) 5 % (1-7); LYMPHOCYTES # (AUTO) 3.54 x10^3/uL (1-3.4); LYMPHOCYTES % (AUTO) 42 % (22-44); MD NO; MEAN CORPUSCULAR HEMOGLOBIN 32.2 pg (27.5-34.5); MEAN CORPUSCULAR HGB CONC 34.2 g/dL (33.2-36.2); MEAN CORPUSCULAR VOLUME 93.9 fL (81-97); MEAN PLATELET VOLUME 8.1 fL (7.4-10.4); MONOCYTES % (AUTO) 7 % (2-9); NEUTROPHILS # (AUTO) 3.93 x10^3/uL (1.8-6.8); NEUTROPHILS % (AUTO) 46 % (42-75); PLATELET COUNT 226 x10^3/uL (130-400); RED CELL DISTRIBUTION WIDTH 14.2 % (9.4-14.8)
[2018-12-18 05:47] LABS: CHLORIDE 109 mmol/L (98-107)
[2018-12-18 06:07] LABS: ALBUMIN 3.9 g/dL (3.4-5.0); ANION GAP 7 mmol/L (5-15); CALCIUM 8.9 mg/dL (8.5-10.1); CREATININE 0.98 mg/dL (0.7-1.3)
[2018-12-18 06:45] VITALS: BP 98/65
[2018-12-18] MEDS: OMEPRAZOLE 20 MG CAPSULE.DR PO SCH (08:46)
[2018-12-18] MEDS: GABAPENTIN 400 MG CAPSULE PO SCH ×2 (08:46→20:45)
[2018-12-18] MEDS: ALBUTEROL SULFATE 2.5 MG/3 ML NPPB SCH ×2 (09:00→20:59)
[2018-12-18] MEDS: TEMPLATE NON-FORMULARY MED. (Albuterol Sulfate (Ventolin Hfa) 90 MCG) INH SCH ×2 (09:00→20:54)
[2018-12-18] MEDS: IBUPROFEN 800 MG TABLET PO PRN ×2 (09:32→20:45)
[2018-12-18] MEDS: METHOCARBAMOL 500 MG TABLET PO PRN ×2 (09:32→21:46)
[2018-12-18] MEDS: ACETAMINOPHEN 325 MG TABLET PO PRN ×2 (10:45→21:45)
[2018-12-18] MEDS: BACLOFEN 10 MG TABLET PO PRN ×2 (10:45→20:45)
[2018-12-18] MEDS: LIDODERM 5% PATCH TD PRN (10:45)
[2018-12-18 14:00] VITALS: BP 114/70
[2018-12-18 19:13] VITALS: BP 120/74
[2018-12-19 00:11] VITALS: BP 103/65
[2018-12-19 05:19] LABS: BASOPHILS # (AUTO) 0.02 x10^3/uL (0-0.1); BASOPHILS % (AUTO) 0 % (0-1); EOSINOPHILS # (AUTO) 0.48 x10^3/uL (0-0.4); EOSINOPHILS % (AUTO) 5 % (1-7); LYMPHOCYTES # (AUTO) 3.78 x10^3/uL (1-3.4); LYMPHOCYTES % (AUTO) 43 % (22-44); MD NO; MEAN CORPUSCULAR HEMOGLOBIN 31.6 pg (27.5-34.5); MEAN CORPUSCULAR HGB CONC 33.5 g/dL (33.2-36.2); MEAN CORPUSCULAR VOLUME 94.2 fL (81-97); MONOCYTES # (AUTO) 0.53 x10^3/uL (0.2-0.8); MONOCYTES % (AUTO) 6 % (2-9); NEUTROPHILS # (AUTO) 4.01 x10^3/uL (1.8-6.8); NEUTROPHILS % (AUTO) 46 % (42-75); PLATELET COUNT 234 x10^3/uL (130-400); RED BLOOD COUNT 4.31 x10^6/uL (4.38-5.82)
[2018-12-19 07:49] VITALS: BP 101/63
[2018-12-19] MEDS: TEMPLATE NON-FORMULARY MED. (Albuterol Sulfate (Ventolin Hfa) 90 MCG) INH SCH ×2 (09:00→20:33)
[2018-12-19] MEDS: GABAPENTIN 400 MG CAPSULE PO SCH ×2 (09:35→20:32)
[2018-12-19] MEDS: OMEPRAZOLE 20 MG CAPSULE.DR PO SCH ×2 (09:35→14:36)
[2018-12-19] MEDS: ACETAMINOPHEN 325 MG TABLET PO PRN (09:50)
[2018-12-19] MEDS: BACLOFEN 10 MG TABLET PO PRN (09:50)
[2018-12-19] MEDS: ALBUTEROL SULFATE 2.5 MG/3 ML NPPB SCH ×2 (09:55→20:46)
[2018-12-19] MEDS: LINEZOLID PMX 600MG/300ML 300 ML IV SCH (13:55)
[2018-12-19 14:00] VITALS: BP 138/74
[2018-12-19 19:06] VITALS: BP 98/60
[2018-12-19 20:31] VITALS: BP 126/79
[2018-12-19] MEDS: LIDODERM 5% PATCH TD PRN (20:32)
[2018-12-19] MEDS: METHOCARBAMOL 500 MG TABLET PO PRN (20:32)
[2018-12-19] MEDS: IBUPROFEN 800 MG TABLET PO PRN (20:32)
[2018-12-20] MEDS: LINEZOLID PMX 600MG/300ML 300 ML IV SCH ×2 (01:55→14:12)
[2018-12-20 02:10] VITALS: BP 98/63
[2018-12-20] MEDS: ACETAMINOPHEN 325 MG TABLET PO PRN (05:26)
[2018-12-20] MEDS: OMEPRAZOLE 20 MG CAPSULE.DR PO SCH (05:27)
[2018-12-20 05:40] LABS: BASOPHILS # (AUTO) 0.04 x10^3/uL (0-0.1); BASOPHILS % (AUTO) 0 % (0-1); EOSINOPHILS # (AUTO) 0.31 x10^3/uL (0-0.4); EOSINOPHILS % (AUTO) 4 % (1-7); LYMPHOCYTES # (AUTO) 3.61 x10^3/uL (1-3.4); LYMPHOCYTES % (AUTO) 44 % (22-44); MD NO; MEAN CORPUSCULAR HEMOGLOBIN 31.6 pg (27.5-34.5); MEAN CORPUSCULAR HGB CONC 33.5 g/dL (33.2-36.2); MEAN CORPUSCULAR VOLUME 94.3 fL (81-97); MONOCYTES % (AUTO) 6 % (2-9); NEUTROPHILS % (AUTO) 46 % (42-75); PLATELET COUNT 238 x10^3/uL (130-400); RED BLOOD COUNT 4.28 x10^6/uL (4.38-5.82)
[2018-12-20 05:54] LABS: CHLORIDE 107 mmol/L (98-107)
[2018-12-20 06:02] LABS: ALANINE AMINOTRANSFERASE 39 U/L (12-78); ALBUMIN 3.6 g/dL (3.4-5.0); ALKALINE PHOSPHATASE 58 U/L (45-117); ANION GAP 7 mmol/L (5-15); BILIRUBIN,TOTAL 0.3 mg/dL (0.2-1.0); CALCIUM 8.3 mg/dL (8.5-10.1)
[2018-12-20 07:45] VITALS: BP 104/65
[2018-12-20] MEDS: TEMPLATE NON-FORMULARY MED. (Albuterol Sulfate (Ventolin Hfa) 90 MCG) INH SCH (09:00)
[2018-12-20] MEDS: IBUPROFEN 800 MG TABLET PO PRN (09:44)
[2018-12-20] MEDS: GABAPENTIN 400 MG CAPSULE PO SCH (09:44)
[2018-12-20] MEDS: BACLOFEN 10 MG TABLET PO PRN (09:45)
[2018-12-20] MEDS: METHOCARBAMOL 500 MG TABLET PO PRN (09:45)
[2018-12-20] MEDS ORDERED: ALBUTEROL SULFATE 2.5 MG/3 ML NPPB PRN (11:00)
[2018-12-20] MEDS ORDERED: OMEP-110 PO ×2 (12:46)
[2018-12-20] MEDS ORDERED: LINE600T37 PO (12:47)
[2018-12-20 13:30] VITALS: BP 119/61
== END 2018-12-20 17:27 | disposition home or self-care (01) | DRG 551 ==
LOC: ED 15:35 → EDIP 15:36 → ED 16:15 → 3NE 17:03
PROVIDERS: ADMIT Internal Medicine; ATTEND Internal Medicine
DX: M46.1 Sacroiliitis, not elsewhere classified (principal); J96.00 Acute respiratory failure, unspecified whether with hypoxia or hypercapnia; L03.312 Cellulitis of back [any part except buttock and flank]; M54.5 Low back pain; R00.0 Tachycardia, unspecified; D64.9 Anemia, unspecified; E11.9 Type 2 diabetes mellitus without complications; E78.5 Hyperlipidemia, unspecified; G89.29 Other chronic pain; I10 Essential (primary) hypertension; J45.909 Unspecified asthma, uncomplicated; K21.9 Gastro-esophageal reflux disease without esophagitis; K58.9 Irritable bowel syndrome, unspecified; N40.0 Benign prostatic hyperplasia without lower urinary tract symptoms; F32.9 Major depressive disorder, single episode, unspecified; F41.9 Anxiety disorder, unspecified; Z82.49 Family history of ischemic heart disease and other diseases of the circulatory system; Z86.14 Personal history of Methicillin resistant Staphylococcus aureus infection
CPT/HCPCS: 36415; 71045; 72158; 80048; 80053; 82040; 83605; 83735; 84100; 84145; 84484; 85025; 85651; 86140; 86141; 87040; 87070; 87077; 87186; 87205; 93005; 94640; 96374; 96375; 96376; A9585; G0378; J1170; J2020; J2405; J7613; J2060

== ENCOUNTER → 2019-01-10 | Outpatient (CLI) | payer MEDICARE ==
[~2019-01-10] MED LIST changes: +5 HTP PO; +LINE600T37 PO
== END | disposition home or self-care (01) ==
LOC: RAD 09:14
PROVIDERS: ATTEND Specialist
DX: H71.12 Cholesteatoma of tympanum, left ear (principal); H90.6 Mixed conductive and sensorineural hearing loss, bilateral; B95.62 Methicillin resistant Staphylococcus aureus infection as the cause of diseases classified elsewhere
CPT/HCPCS: 36573; C1751

== ENCOUNTER 2019-01-20 08:59 | Outpatient (CLI) | payer MEDICARE | END 2019-01-20 23:59 | disposition home or self-care (01) | LOC: STAR 08:59 | PROVIDERS: ATTEND Specialist | DX: Z02.9 Encounter for administrative examinations, unspecified (principal) ==

== ENCOUNTER 2019-01-25 12:36 | Observation (INO) | payer MEDICARE ==
[2019-01-20 12:14] VITALS: BP 136/94
[~2019-01-25] VITALS: Ht 175.3 cm; Wt 88.0 kg
[2019-01-25] MEDS ORDERED: VANCOMYCIN PER PHARMACY MC PRN (13:00)
[2019-01-25] MEDS ORDERED: LACTATED RINGERS 1,000 ML IV SCH (13:22)
[2019-01-25] MEDS ORDERED: VANCOMYCIN 1,700 MG in SODIUM CHLORIDE 0.9% 250 ML IV ONE (13:30)
[2019-01-25] MEDS ORDERED: FENTANYL PF 100 MCG/2ML ONE ×2 (15:03→22:34)
[2019-01-25] MEDS ORDERED: MIDAZOLAM 1 MG/ML, 2ML ONE (15:03)
[2019-01-25] MEDS ORDERED: LIDOCAINE 1%-EPI 1:100K, 50ML ONE (15:43)
[2019-01-25] MEDS ORDERED: EPINEPHRINE 1 MG/ML, 1ML ONE (15:43)
[2019-01-25] MEDS ORDERED: BACITRACIN OINT 500U/GM, 15 GM ONE (15:43)
[2019-01-25] MEDS ORDERED: OFLOXACIN OPHTH 0.3%, 5ML ONE (15:43)
[2019-01-25] MEDS ORDERED: LIDOCAINE-MPF 2% ,5ML ONE (16:45)
[2019-01-25] MEDS ORDERED: SUCCINYLCHOLINE 20 MG/ML, 10ML ONE (16:45)
[2019-01-25] MEDS ORDERED: METOCLOPRAMIDE 5 MG/ML, 2ML ONE (16:45)
[2019-01-25] MEDS ORDERED: PROPOFOL 10 MG/ML, 20ML ONE (16:45)
[2019-01-25] MEDS ORDERED: DEXAMETHASONE 4 MG/ML, 1ML ONE (16:45)
[2019-01-25] MEDS ORDERED: ONDANSETRON 2MG/ML, 2ML ONE (16:45)
[2019-01-25] MEDS ORDERED: ONDANSETRON 2MG/ML, 2ML IV PRN (17:30)
[2019-01-25] MEDS ORDERED: ALBUTEROL SULFATE 2.5 MG/3 ML NPPB PRN (17:30)
[2019-01-25] MEDS ORDERED: ACETAMINOPHEN 325 MG TABLET PO PRN (17:30)
[2019-01-25] MEDS ORDERED: FENTANYL PF 100 MCG/2ML IV PRN (17:30)
[2019-01-25] MEDS ORDERED: METOCLOPRAMIDE 5 MG/ML, 2ML IV PRN (17:30)
[2019-01-25] MEDS ORDERED: GELFILM OPHTHALMIC DRESSING ONE (20:12)
[2019-01-25] MEDS ORDERED: HYDROmorphone 2 MG/ML, 1ML ONE ×2 (21:33→22:34)
[2019-01-25] MEDS: HYDROmorphone 2 MG/ML, 1ML IVPush PRN ×6 (21:35→22:37)
[2019-01-25] MEDS ORDERED: MEPERIDINE/PF 25MG/ML,1ML ONE (22:12)
[2019-01-25] MEDS: MEPERIDINE/PF 25MG/0.5ML IVPush PRN ×2 (22:16→22:27)
[2019-01-25] MEDS ORDERED: ONDANSETRON 2MG/ML, 2ML IVPush PRN (23:45)
[2019-01-26] MEDS: OXYcodone/APAP 5/325MG TABLET PO PRN ×3 (00:09→08:07)
[2019-01-26 04:04] VITALS: BP 103/57
[2019-01-26 10:50] VITALS: BP 104/66
[2019-01-26 12:16] VITALS: BP 103/66
[2019-01-26] MEDS ORDERED: OXYC-302 PO (14:34)
== END 2019-01-26 14:55 | disposition home or self-care (01) ==
LOC: OUT 12:36 → 4NOR 23:05 → OUT 23:50 → 4NOR 23:51
PROVIDERS: ADMIT Specialist; ATTEND Specialist
DX: H71.12 Cholesteatoma of tympanum, left ear (principal); H90.6 Mixed conductive and sensorineural hearing loss, bilateral; Z88.0 Allergy status to penicillin; Z88.1 Allergy status to other antibiotic agents; Z88.2 Allergy status to sulfonamides; Z88.5 Allergy status to narcotic agent; Z88.8 Allergy status to other drugs, medicaments and biological substances; Z88.9 Allergy status to unspecified drugs, medicaments and biological substances; Z91.011 Allergy to milk products; Z91.040 Latex allergy status; Z79.899 Other long term (current) drug therapy
CPT/HCPCS: 69642; 88305; 96374; G0378; J0171; J0330; J1100; J1170; J2175; J2250; J2405; J2704; J2765; J3370; J3490; J7050; J7120; L8613; J3010

== ENCOUNTER 2019-02-10 19:54 | Emergency (ER) | payer MEDICARE ==
[~2019-02-10] VITALS: Ht 175.3 cm; Wt 86.0 kg
[~2019-02-10 19:54] MED LIST changes: +OXYC-302 PO
--- NOTE | 2019-02-10 20:07 | NUR ---
FIRST CONTACT WITH PT. PT REPORTS LOWER BACK PAIN. NO TRAUMA NOTED. PT HAS HX OF MULTIPLE BACK SURGERY. PT HAS SINUS TACHY ON EGG SMELLER RATE 120'S AT THIS TIME. PA AT BEDSIDE TO EVALUATE AT THIS TIME. BP/SPO2 MONITORS IN PLACE. CALL LIGHT WITHIN REACH.
[2019-02-10] MEDS ORDERED: HYDROcodone/APAP 5/325 TABLET PO ONE (20:30)
[2019-02-10] MEDS ORDERED: HYDROcodone/APAP 5/325 TABLET ONE ×2 (20:39)
--- NOTE | 2019-02-10 20:45 | NUR ---
PT MEDICATED PER EMAR FOR PAIN. PT TOLERATED WELL.
--- NOTE | 2019-02-10 20:45 | NUR ---
PT AMB TO BR AND BACK TO ROOM WITH STEADY GAIT. UA SEND.
[2019-02-10 20:48] LABS: ALBUMIN 4.1 g/dL (3.4-5.0); ANION GAP 7 mmol/L (5-15); CALCIUM 9.2 mg/dL (8.5-10.1); CHLORIDE 109 mmol/L (98-107); CREATININE 1.01 mg/dL (0.7-1.3)
[2019-02-10 20:53] LABS: MICROSCOPIC AUTO
[2019-02-10 20:54] LABS: CULTURE INDICATED? YES
[2019-02-10 21:08] LABS: MEAN CORPUSCULAR HGB CONC 33.2 g/dL (33.2-36.2); MEAN CORPUSCULAR VOLUME 96.4 fL (81-97); MEAN PLATELET VOLUME 8.3 fL (7.4-10.4); PLATELET COUNT 289 x10^3/uL (130-400); RED BLOOD COUNT 4.26 x10^6/uL (4.38-5.82); RED CELL DISTRIBUTION WIDTH 14.5 % (9.4-14.8)
[2019-02-10 21:25] LABS: BASOPHILS # (AUTO) 0.05 x10^3/uL (0-0.1); BASOPHILS % (AUTO) 0 % (0-1); EOSINOPHILS # (AUTO) 0.07 x10^3/uL (0-0.4); EOSINOPHILS % (AUTO) 1 % (1-7); LYMPHOCYTES # (AUTO) 3.82 x10^3/uL (1-3.4); LYMPHOCYTES % (AUTO) 33 % (22-44); MD SCAN; MONOCYTES # (AUTO) 0.53 x10^3/uL (0.2-0.8); MONOCYTES % (AUTO) 5 % (2-9); NEUTROPHILS # (AUTO) 7.09 x10^3/uL (1.8-6.8); NEUTROPHILS % (AUTO) 61 % (42-75)
--- NOTE | 2019-02-10 21:46 | NUR ---
PT STATES "I'M IN BAD PAIN NOW." PA NOTIFIED.
[2019-02-10] MEDS ORDERED: LIDODERM 5% PATCH TD ONE ×2 (21:53→22:00)
--- NOTE | 2019-02-10 21:57 | NUR ---
LIDOCAINE PATCH PLACED ON LOWER BACK. PT TOLERATED WELL.
[2019-02-10] MEDS ORDERED: HYDROmorphone 1 MG/ML, 1ML INJ IM STA (22:01)
[2019-02-10] MEDS ORDERED: HYDROmorphone 2 MG/ML, 1ML ONE (22:04)
--- NOTE | 2019-02-10 22:08 | NUR ---
PT MEDICATED PER EMAR FOR PAIN. PT TOLERATED WELL.
[2019-02-10 22:23] VITALS: BP 120/65
--- NOTE | 2019-02-10 22:25 | NUR ---
PT GIVEN DC INSTRUCTIONS AND SCRIPTS. PT EDUCATED REGARDING DC MEDICATIONS. PT'S AOX4. RESPS EVEN AND UNLABORED. PT AMB TO DC WITH STEADY GAIT. NO ACUTE DISTRESS AT DC.
[2019-02-10] MEDS ORDERED: HYDROmorphone 1 MG/ML, 1ML INJ IM ONE (22:30)
== END 2019-02-10 22:25 | disposition home or self-care (01) ==
LOC: ED 20:10
DX: S39.012A Strain of muscle, fascia and tendon of lower back, initial encounter (principal); I10 Essential (primary) hypertension; E11.9 Type 2 diabetes mellitus without complications; E78.5 Hyperlipidemia, unspecified; J45.909 Unspecified asthma, uncomplicated; Z90.49 Acquired absence of other specified parts of digestive tract; X58.XXXA Exposure to other specified factors, initial encounter; Y93.89 Activity, other specified; Y92.89 Other specified places as the place of occurrence of the external cause; Y99.8 Other external cause status
CPT/HCPCS: 36415; 80048; 81001; 82040; 85025; 87086; 96372; 99283; J1170

== ENCOUNTER → 2019-02-14 | Outpatient (CLI) | payer MEDICARE | END | disposition home or self-care (01) | LOC: CFH 07:45 | PROVIDERS: ATTEND Neurological Surgery | DX: M47.896 Other spondylosis, lumbar region (principal) | CPT/HCPCS: 72110 ==

== ENCOUNTER 2019-02-21 21:58 | Inpatient (IN) | payer MEDICARE ==
[~2019-02-21] VITALS: Ht 175.3 cm; Wt 93.0 kg
[2019-02-21] MEDS ORDERED: LIDODERM 5% PATCH TD ONE ×2 (22:53→23:00)
--- NOTE | 2019-02-21 23:30 | NUR ---
PT VSS. PT MEDICATED PER MAR FOR PAIN. PT RESTING COMFORTABLY IN GOWN IN [facility] AT THIS TIME; MARCUS PAZ AT FOR PT HISTORY AND ASSESSMENT. PT PROVIDED URINE PER REQUEST.
--- NOTE | 2019-02-21 23:49 | NUR ---
REPORT OF PT TO NANCY BARON. ALL QUESTIONS ANSWERED. PT HAS TRANSPORT AT FOR TRANSPORT OF PT TO THE FLOOR AT THIS TIME.
[2019-02-22] MEDS ORDERED: DOCUSATE 100 MG CAPSULE PO PRN
[2019-02-22] MEDS ORDERED: TEMAZEPAM 15 MG CAPSULE PO PRN
[2019-02-22] MEDS ORDERED: ONDANSETRON ODT 4 MG PO PRN
[2019-02-22] MEDS ORDERED: LIDODERM 5% PATCH TD PRN
[2019-02-22] MEDS ORDERED: hydrALAzine 20 MG/ML, 1ML IVPush PRN
[2019-02-22 00:19] VITALS: BP 112/75
[2019-02-22] MEDS: ENOXAPARIN 40 MG/0.4 ML SQ SCH ×2 (00:30→23:46)
[2019-02-22] MEDS: GABAPENTIN 400 MG CAPSULE PO SCH ×3 (00:30→20:22)
[2019-02-22] MEDS: HYDROmorphone 2 MG/ML, 1ML IVPush PRN ×8 (00:30→23:41)
[2019-02-22 02:00] VITALS: BP 112/75
[2019-02-22 02:01] LABS: CULTURE INDICATED? NO; MICROSCOPIC NOT IND
[2019-02-22 05:01] LABS: BASOPHILS # (AUTO) 0.13 x10^3/uL (0-0.1); BASOPHILS % (AUTO) 1 % (0-1); EOSINOPHILS # (AUTO) 0.14 x10^3/uL (0-0.4); EOSINOPHILS % (AUTO) 1 % (1-7); LYMPHOCYTES # (AUTO) 4.36 x10^3/uL (1-3.4); LYMPHOCYTES % (AUTO) 43 % (22-44); MD NO; MEAN CORPUSCULAR HEMOGLOBIN 31.1 pg (27.5-34.5); MEAN CORPUSCULAR HGB CONC 32.6 g/dL (33.2-36.2); MEAN CORPUSCULAR VOLUME 95.3 fL (81-97); MEAN PLATELET VOLUME 8.2 fL (7.4-10.4); MONOCYTES # (AUTO) 0.63 x10^3/uL (0.2-0.8); MONOCYTES % (AUTO) 6 % (2-9); NEUTROPHILS % (AUTO) 49 % (42-75); PLATELET COUNT 239 x10^3/uL (130-400); RED BLOOD COUNT 4.59 x10^6/uL (4.38-5.82); RED CELL DISTRIBUTION WIDTH 14.2 % (9.4-14.8)
[2019-02-22] MEDS: ALBUTEROL SULFATE 2.5 MG/3 ML NPPB SCH ×3 (05:03→10:26)
[2019-02-22 05:15] LABS: ANION GAP 7 mmol/L (5-15); CALCIUM 8.6 mg/dL (8.5-10.1); CHLORIDE 106 mmol/L (98-107)
[2019-02-22 05:16] LABS: CREATININE 1.15 mg/dL (0.7-1.3)
[2019-02-22] MEDS: OMEPRAZOLE 20 MG CAPSULE.DR PO SCH (08:39)
[2019-02-22] MEDS: IBUPROFEN 600 MG TABLET PO PRN (08:40)
[2019-02-22] MEDS: COLESTIPOL 1 GM TABLET PO SCH ×2 (08:40→20:22)
[2019-02-22 08:42] VITALS: BP 132/86
[2019-02-22] MEDS ORDERED: TOBR5DRO14 LEFTEYE (08:48)
[2019-02-22] MEDS ORDERED: DOXY100C2 PO (08:49)
[2019-02-22] MEDS ORDERED: HTP 100 MG PO SCH (09:00)
[2019-02-22] MEDS ORDERED: ALBUTEROL SULFATE 2.5 MG/3 ML NPPB PRN (11:00)
[2019-02-22 14:32] VITALS: BP 130/87
[2019-02-22 18:59] VITALS: BP 125/84
[2019-02-23 02:26] VITALS: BP 120/88
[2019-02-23] MEDS: HYDROmorphone 2 MG/ML, 1ML IVPush PRN ×4 (05:38→18:04)
[2019-02-23 05:52] LABS: BASOPHILS # (AUTO) 0.04 x10^3/uL (0-0.1); BASOPHILS % (AUTO) 0 % (0-1); EOSINOPHILS % (AUTO) 1 % (1-7); LYMPHOCYTES # (AUTO) 3.23 x10^3/uL (1-3.4); LYMPHOCYTES % (AUTO) 23 % (22-44); MD NO; MEAN CORPUSCULAR HEMOGLOBIN 32.1 pg (27.5-34.5); MEAN CORPUSCULAR HGB CONC 33.4 g/dL (33.2-36.2); MONOCYTES # (AUTO) 0.58 x10^3/uL (0.2-0.8); MONOCYTES % (AUTO) 4 % (2-9); NEUTROPHILS # (AUTO) 10.36 x10^3/uL (1.8-6.8); NEUTROPHILS % (AUTO) 72 % (42-75); PLATELET COUNT 238 x10^3/uL (130-400); RED BLOOD COUNT 4.79 x10^6/uL (4.38-5.82); RED CELL DISTRIBUTION WIDTH 14.3 % (9.4-14.8)
[2019-02-23 06:23] LABS: ANION GAP 11 mmol/L (5-15); CALCIUM 9.2 mg/dL (8.5-10.1); CHLORIDE 105 mmol/L (98-107); CREATININE 1.18 mg/dL (0.7-1.3)
[2019-02-23 07:00] VITALS: BP 124/76
[2019-02-23] MEDS: OMEPRAZOLE 20 MG CAPSULE.DR PO SCH (08:56)
[2019-02-23] MEDS: COLESTIPOL 1 GM TABLET PO SCH ×2 (08:56→20:48)
[2019-02-23] MEDS: GABAPENTIN 400 MG CAPSULE PO SCH ×2 (08:56→20:48)
[2019-02-23 13:09] VITALS: BP 120/73
[2019-02-23] MEDS ORDERED: HYDROmorphone 2 MG/ML, 1ML IVPush PRN (15:00)
[2019-02-23 19:21] VITALS: BP 113/78
[2019-02-24] MEDS: ENOXAPARIN 40 MG/0.4 ML SQ SCH (00:07)
[2019-02-24] MEDS: HYDROmorphone 2 MG/ML, 1ML IVPush PRN ×3 (00:08→09:07)
[2019-02-24 02:29] VITALS: BP 125/78
[2019-02-24 04:41] LABS: BASOPHILS # (AUTO) 0.03 x10^3/uL (0-0.1); BASOPHILS % (AUTO) 0 % (0-1); EOSINOPHILS # (AUTO) 0.15 x10^3/uL (0-0.4); EOSINOPHILS % (AUTO) 2 % (1-7); LYMPHOCYTES # (AUTO) 4.04 x10^3/uL (1-3.4); LYMPHOCYTES % (AUTO) 38 % (22-44); MD NO; MEAN CORPUSCULAR HEMOGLOBIN 31.6 pg (27.5-34.5); MEAN CORPUSCULAR HGB CONC 33.2 g/dL (33.2-36.2); MEAN CORPUSCULAR VOLUME 95.3 fL (81-97); MEAN PLATELET VOLUME 8.1 fL (7.4-10.4); MONOCYTES # (AUTO) 0.67 x10^3/uL (0.2-0.8); MONOCYTES % (AUTO) 6 % (2-9); NEUTROPHILS # (AUTO) 5.77 x10^3/uL (1.8-6.8); NEUTROPHILS % (AUTO) 54 % (42-75); PLATELET COUNT 236 x10^3/uL (130-400); RED BLOOD COUNT 4.31 x10^6/uL (4.38-5.82); RED CELL DISTRIBUTION WIDTH 14.2 % (9.4-14.8)
[2019-02-24 04:50] LABS: ANION GAP 7 mmol/L (5-15); CALCIUM 8.3 mg/dL (8.5-10.1); CHLORIDE 106 mmol/L (98-107)
[2019-02-24 07:14] VITALS: BP 128/71
[2019-02-24] MEDS: COLESTIPOL 1 GM TABLET PO SCH ×2 (09:07→20:44)
[2019-02-24] MEDS: OMEPRAZOLE 20 MG CAPSULE.DR PO SCH (09:08)
[2019-02-24] MEDS: GABAPENTIN 400 MG CAPSULE PO SCH ×2 (09:08→20:44)
[2019-02-24] MEDS: CIPROFLOXACIN OPHTH SOLN 0.3%, 5ML EACHEYE SCH ×6 (12:48→22:46)
[2019-02-24 13:08] LABS: HCT (SEDRATE) 44.1 % (39.2-51.8)
[2019-02-24 13:44] LABS: MICROSCOPIC AUTO
[2019-02-24 13:45] LABS: CULTURE INDICATED? YES
[2019-02-24 14:06] VITALS: BP 130/76
[2019-02-24] MEDS: IBUPROFEN 600 MG TABLET PO PRN (15:48)
[2019-02-24] MEDS ORDERED: ALBUTEROL/IPRATROPIUM 2.5MG/0.5MG, 3 ML ONE (16:52)
[2019-02-24] MEDS ORDERED: HYDROmorphone 2 MG/ML, 1ML IV ONE (17:00)
[2019-02-24] MEDS ORDERED: ALBUTEROL/IPRATROPIUM 2.5MG/0.5MG, 3 ML NEB ONE (17:00)
[2019-02-24 17:22] VITALS: BP 127/85
[2019-02-24 17:22] LABS: TROPONIN I < 0.015 ng/mL (0.000-0.045)
[2019-02-24 17:46] LABS: O2 FLOW 3.5 L/min
[2019-02-24 19:33] VITALS: BP 100/67
[2019-02-24] MEDS ORDERED: OMNIPAQUE 350 MG/ML, 100ML BOTTLE ONE (20:22)
[2019-02-25 00:14] LABS: TROPONIN I < 0.015 ng/mL (0.000-0.045)
[2019-02-25] MEDS: ENOXAPARIN 40 MG/0.4 ML SQ SCH (00:47)
[2019-02-25 02:31] VITALS: BP 97/60
[2019-02-25 07:39] VITALS: BP 101/69
[2019-02-25] MEDS: CIPROFLOXACIN OPHTH SOLN 0.3%, 5ML EACHEYE SCH ×8 (09:58→22:10)
[2019-02-25] MEDS: GABAPENTIN 400 MG CAPSULE PO SCH ×2 (09:58→21:05)
[2019-02-25] MEDS: COLESTIPOL 1 GM TABLET PO SCH ×2 (09:59→21:05)
[2019-02-25] MEDS: OMEPRAZOLE 20 MG CAPSULE.DR PO SCH (09:59)
[2019-02-25] MEDS ORDERED: NITROGLYCERIN SINGLE TAB 0.4 MG SL PRN (12:30)
[2019-02-25 14:27] VITALS: BP 116/81
[2019-02-25] MEDS ORDERED: NITROGLYCERIN 0.4 MG BOTTLE (25 TABS) SL ONE (14:48)
[2019-02-25 14:58] VITALS: BP 106/69
[2019-02-25] MEDS ORDERED: LORazepam 1MG TABLET PO ONE (16:30)
[2019-02-25 18:31] VITALS: BP 99/65
[2019-02-26] MEDS: ENOXAPARIN 40 MG/0.4 ML SQ SCH (00:36)
[2019-02-26 02:48] VITALS: BP 101/63
[2019-02-26 08:27] VITALS: BP 115/75
[2019-02-26] MEDS: CIPROFLOXACIN OPHTH SOLN 0.3%, 5ML EACHEYE SCH ×4 (10:00→14:00)
[2019-02-26] MEDS: GABAPENTIN 400 MG CAPSULE PO SCH (10:11)
[2019-02-26] MEDS: COLESTIPOL 1 GM TABLET PO SCH (10:11)
[2019-02-26] MEDS: OMEPRAZOLE 20 MG CAPSULE.DR PO SCH (10:11)
[2019-02-26] MEDS ORDERED: REGADENOSON 0.4 MG/5 ML SYRINGE ONE (10:11)
[2019-02-26 14:37] VITALS: BP 132/85
[2019-02-26] MEDS ORDERED: IBUP-1222 PO (15:46)
[2019-02-26] MEDS ORDERED: CIPR2.5D EACHEYE (15:46)
== END 2019-02-26 17:25 | disposition home health service (06) | DRG 552 ==
LOC: ED 22:15 → EDIP 22:51 → INTOOBSV 22:51 → UNDOADMOB 22:51 → 3NE 23:58 → EDIP 23:58 → 3NE 02-22 11:19 → OBSVTOIN 02-22 17:33 → 5SO 02-24 18:55
PROVIDERS: ADMIT Internal Medicine; ATTEND Internal Medicine
DX: M51.16 Intervertebral disc disorders with radiculopathy, lumbar region (principal); F33.9 Major depressive disorder, recurrent, unspecified; J98.11 Atelectasis; N39.0 Urinary tract infection, site not specified; R30.0 Dysuria; K58.0 Irritable bowel syndrome with diarrhea; E78.5 Hyperlipidemia, unspecified; E11.9 Type 2 diabetes mellitus without complications; G89.29 Other chronic pain; I10 Essential (primary) hypertension; J45.909 Unspecified asthma, uncomplicated; K58.9 Irritable bowel syndrome, unspecified; N40.0 Benign prostatic hyperplasia without lower urinary tract symptoms; Z82.49 Family history of ischemic heart disease and other diseases of the circulatory system; Z63.8 Other specified problems related to primary support group; Z86.14 Personal history of Methicillin resistant Staphylococcus aureus infection; Z90.49 Acquired absence of other specified parts of digestive tract; Z98.1 Arthrodesis status; Z88.2 Allergy status to sulfonamides; Z88.6 Allergy status to analgesic agent; Z88.8 Allergy status to other drugs, medicaments and biological substances
CPT/HCPCS: 36415; 36600; 71045; 71275; 78452; 80048; 81001; 81003; 82803; 84484; 85025; 85651; 86140; 87040; 87086; 93005; 93017; 93306; 94640; 99285; G0378; J1170; J1650; J2785; J7613; Q0162; Q9967; A9502; C9898

== ENCOUNTER 2019-03-15 11:33 | Outpatient (CLI) | payer MEDICARE | END 2019-03-15 23:59 | disposition home or self-care (01) | LOC: RAD 11:33 | DX: M41.84 Other forms of scoliosis, thoracic region (principal); R10.9 Unspecified abdominal pain; Z90.49 Acquired absence of other specified parts of digestive tract; Z98.890 Other specified postprocedural states | CPT/HCPCS: 72072; 74018 ==

== ENCOUNTER 2019-03-21 12:58 | Emergency (ER) | payer MEDICARE ==
[~2019-03-21] VITALS: Ht 175.3 cm; Wt 85.0 kg
[~2019-03-21 12:58] MED LIST changes: -ALBU6.7H INH; +ALBU6.7H8 INH; +CIPR2.5D EACHEYE; +IBUP-1222 PO; -IBUP-1484 PO; +IBUP-1902 PO; +LINE600T2 PO; -LINE600T37 PO; -MELA3TAB2 PO; +MELA3TAB56 PO; +TOBR5DRO14 LEFTEYE
[2019-03-21] MEDS ORDERED: HYDR-36 PO (13:28)
[2019-03-21] MEDS ORDERED: DIAZ2TAB3 PO (13:28)
--- NOTE | 2019-03-21 13:30 | NUR ---
PT TO ED AFTER REFERRAL FROM PCP FOR POSSIBLE LOWER BACK CELLULITIS. PT STATES PAIN TO MIDLINE LOWER BACK. PT CONNECTED TO MONITORS. VSS. DR. HINES TO FOR ASSESSMENT.LAB AT TO DRAW BC X2. IV ESTABLISHED AND LABS DRAWN. AWAITING RESULTS.
[2019-03-21 13:38] LABS: BASOPHILS # (AUTO) 0.02 x10^3/uL (0-0.1); BASOPHILS % (AUTO) 0 % (0-1); EOSINOPHILS # (AUTO) 0.18 x10^3/uL (0-0.4); EOSINOPHILS % (AUTO) 1 % (1-7); LYMPHOCYTES # (AUTO) 4.41 x10^3/uL (1-3.4); LYMPHOCYTES % (AUTO) 33 % (22-44); MD NO; MEAN CORPUSCULAR HEMOGLOBIN 31.4 pg (27.5-34.5); MEAN CORPUSCULAR HGB CONC 32.8 g/dL (33.2-36.2); MEAN CORPUSCULAR VOLUME 95.9 fL (81-97); MONOCYTES % (AUTO) 4 % (2-9); NEUTROPHILS # (AUTO) 8.37 x10^3/uL (1.8-6.8); NEUTROPHILS % (AUTO) 62 % (42-75); PLATELET COUNT 278 x10^3/uL (130-400); RED CELL DISTRIBUTION WIDTH 14.3 % (9.4-14.8)
[2019-03-21 13:46] LABS: ANION GAP 6 mmol/L (5-15); CALCIUM 9.1 mg/dL (8.5-10.1); CHLORIDE 107 mmol/L (98-107); CREATININE 1.09 mg/dL (0.7-1.3)
--- NOTE | 2019-03-21 14:02 | NUR ---
pt resting in room with lights dimmed. vss. awaiting ct and lab results.
--- NOTE | 2019-03-21 14:15 | NUR ---
pt to ct at this time.
[2019-03-21 15:27] VITALS: BP 125/83
[2019-03-21] MEDS ORDERED: CLINDAMYCIN PMX 900MG/50ML 50 ML IV ONE (15:30)
[2019-03-21] MEDS ORDERED: SODIUM CHLORIDE 0.9% 1,000ML IVBOLUS ONE (15:30)
--- NOTE | 2019-03-21 15:33 | NUR ---
pt resting in room. vss. ivf and ivabx started. no needs expressed. awaitng further orders.
[2019-03-21] MEDS ORDERED: HYDROcodone/APAP 10/325 MG TABLET ONE (15:51)
[2019-03-21] MEDS ORDERED: OMNIPAQUE 350 MG/ML, 100ML BOTTLE ONE (15:54)
[2019-03-21] MEDS ORDERED: HYDROcodone/APAP 10/325 MG TABLET PO ONE (16:00)
== END 2019-03-21 17:49 | disposition home or self-care (01) ==
LOC: ED 14:48
DX: L03.312 Cellulitis of back [any part except buttock and flank] (principal); I10 Essential (primary) hypertension; E11.9 Type 2 diabetes mellitus without complications; K21.9 Gastro-esophageal reflux disease without esophagitis; F41.1 Generalized anxiety disorder; Z86.14 Personal history of Methicillin resistant Staphylococcus aureus infection; Z90.49 Acquired absence of other specified parts of digestive tract; Z72.9 Problem related to lifestyle, unspecified
CPT/HCPCS: 36415; 72132; 80048; 83605; 85025; 87040; 93005; 96365; 99284; J7030; Q9967

== ENCOUNTER 2019-03-28 17:10 | Emergency (ER) | payer MEDICARE ==
[~2019-03-28] VITALS: Ht 175.3 cm; Wt 84.8 kg
[2019-03-28 18:56] VITALS: BP 116/82
== END 2019-03-28 18:59 | disposition home or self-care (01) ==
LOC: ED 18:46
DX: L03.312 Cellulitis of back [any part except buttock and flank] (principal); I10 Essential (primary) hypertension; E11.9 Type 2 diabetes mellitus without complications; Z86.14 Personal history of Methicillin resistant Staphylococcus aureus infection; F32.9 Major depressive disorder, single episode, unspecified; K21.9 Gastro-esophageal reflux disease without esophagitis; Z90.49 Acquired absence of other specified parts of digestive tract; Z72.9 Problem related to lifestyle, unspecified
CPT/HCPCS: 96372; 99283; J1170; 96367

== ENCOUNTER 2019-04-08 09:10 | Emergency (ER) | payer MEDICARE ==
[~2019-04-08] VITALS: Ht 175.3 cm; Wt 85.6 kg
[2019-04-08 11:12] VITALS: BP 115/74
== END 2019-04-08 11:33 | disposition home or self-care (01) ==
LOC: ED 09:34
DX: N30.00 Acute cystitis without hematuria (principal); I10 Essential (primary) hypertension; E11.9 Type 2 diabetes mellitus without complications; K21.9 Gastro-esophageal reflux disease without esophagitis; J45.909 Unspecified asthma, uncomplicated; Z90.89 Acquired absence of other organs; Z90.49 Acquired absence of other specified parts of digestive tract
CPT/HCPCS: 81001; 87324; 99283

== ENCOUNTER 2019-07-23 19:47 | Emergency (ER) | payer MEDICARE, OTHER ==
[~2019-07-23] VITALS: Ht 175.3 cm; Wt 87.5 kg
[~2019-07-23 19:47] MED LIST changes: +DIAZ2TAB3 PO; +HYDR-36 PO; +LINE600T12 PO; -LINE600T2 PO
--- NOTE | 2019-07-23 19:56 | NUR ---
ekg in progress
--- NOTE | 2019-07-23 20:07 | NUR ---
PT REPORTING CHEST PAIN FOR "A COUPLE HOURS". HURTS DURING DEEP BREATHING. PT IS HOOKED UP TO LAB DIRECTOR. CALL LIGHT WITHIN REACH.
[2019-07-23] MEDS ORDERED: MAALOX/HYOSCYAMINE/LIDOCAINE 45 ML BTL ONE (20:50)
[2019-07-23] MEDS ORDERED: HYDROcodone/APAP 10/325 MG TABLET ONE (20:50)
[2019-07-23] MEDS ORDERED: HYDROcodone/APAP 10/325 MG TABLET PO ONE (21:00)
[2019-07-23] MEDS ORDERED: MAALOX/HYOSCYAMINE/LIDOCAINE 45 ML BTL PO ONE (21:00)
[2019-07-23 21:01] LABS: BASOPHILS # (AUTO) 0.04 x10^3/uL (0-0.1); BASOPHILS % (AUTO) 0 % (0-1); EOSINOPHILS % (AUTO) 0 % (1-7); LYMPHOCYTES % (AUTO) 42 % (22-44); MD NO; MEAN CORPUSCULAR HEMOGLOBIN 31.5 pg (27.5-34.5); MEAN CORPUSCULAR HGB CONC 33.4 g/dL (33.2-36.2); MEAN CORPUSCULAR VOLUME 94.4 fL (81-97); MEAN PLATELET VOLUME 7.8 fL (7.4-10.4); MONOCYTES # (AUTO) 0.54 x10^3/uL (0.2-0.8); MONOCYTES % (AUTO) 5 % (2-9); NEUTROPHILS # (AUTO) 5.77 x10^3/uL (1.8-6.8); NEUTROPHILS % (AUTO) 53 % (42-75); PLATELET COUNT 369 x10^3/uL (130-400); RED BLOOD COUNT 4.81 x10^6/uL (4.38-5.82); RED CELL DISTRIBUTION WIDTH 14.3 % (9.4-14.8)
[2019-07-23 21:12] LABS: ALANINE AMINOTRANSFERASE 40 U/L (12-78); ALBUMIN 4.2 g/dL (3.4-5.0); ANION GAP 5 mmol/L (5-15); CALCIUM 9.2 mg/dL (8.5-10.1); CHLORIDE 109 mmol/L (98-107); CREATININE 1.03 mg/dL (0.7-1.3)
[2019-07-23 21:17] LABS: ALKALINE PHOSPHATASE 73 U/L (45-117); BILIRUBIN,TOTAL 0.4 mg/dL (0.2-1.0); TOTAL PROTEIN 8.5 g/dL (6.4-8.2); TROPONIN I < 0.015 ng/mL (0.000-0.045)
--- NOTE | 2019-07-23 21:18 | NUR ---
PT RESTING IN BED. REPORTS LITTLE IMPROVEMENT IN PAIN. BLANKET PROVIDED. CALL LIGHT WITHIN REACH.
--- NOTE | 2019-07-23 22:00 | NUR ---
AT BEDSIDE TO REASSESS PT AND DISCUSS POC
[2019-07-23 22:13] VITALS: BP 161/88
== END 2019-07-23 22:15 | disposition home or self-care (01) ==
LOC: ED 20:58
DX: K21.9 Gastro-esophageal reflux disease without esophagitis (principal); M51.36 Other intervertebral disc degeneration, lumbar region; E11.9 Type 2 diabetes mellitus without complications; J45.909 Unspecified asthma, uncomplicated; G43.909 Migraine, unspecified, not intractable, without status migrainosus; I10 Essential (primary) hypertension; Z90.89 Acquired absence of other organs; Z90.49 Acquired absence of other specified parts of digestive tract
CPT/HCPCS: 36415; 71045; 80053; 83690; 84484; 85025; 93005; 99284

== ENCOUNTER 2019-09-25 20:02 | Emergency (ER) | payer MEDICARE, OTHER ==
[~2019-09-25] VITALS: Ht 175.3 cm; Wt 80.1 kg
[2019-09-25] MEDS ORDERED: HYDROmorphone 1 MG/ML, 1ML INJ ONE ×2 (20:45→23:00)
[2019-09-25] MEDS ORDERED: SODIUM CHLORIDE FLUSH 10ML SYR IVF ONE (21:00)
--- NOTE | 2019-09-25 21:02 | NUR ---
Patient presents to ER c/o back pain, cough, and chills. Patient states he has chronic back pain and had a stimulator placed this last Thursday. Since then, his back pain has been worse. His usual pain level is a 6/10 and today it is a 10/10. Patient has also been sick for a couple days with chills, sore throat, and productive green cough. He has also had diarrhea. Patient is in NAD. Respirations even and unlabored. Rectal temp performed per ERP.
[2019-09-25 21:06] LABS: RAPID INFLUENZA A Negative (Negative); RAPID INFLUENZA B Negative (Negative)
[2019-09-25 21:25] LABS: BASOPHILS # (AUTO) 0.03 x10^3/uL (0-0.1); BASOPHILS % (AUTO) 0 % (0-1); EOSINOPHILS # (AUTO) 0.22 x10^3/uL (0-0.4); EOSINOPHILS % (AUTO) 2 % (1-7); LYMPHOCYTES # (AUTO) 2.94 x10^3/uL (1-3.4); LYMPHOCYTES % (AUTO) 33 % (22-44); MD NO; MEAN CORPUSCULAR HEMOGLOBIN 31.4 pg (27.5-34.5); MEAN CORPUSCULAR HGB CONC 33.8 g/dL (33.2-36.2); MEAN CORPUSCULAR VOLUME 92.9 fL (81-97); MEAN PLATELET VOLUME 8.3 fL (7.4-10.4); MONOCYTES # (AUTO) 0.87 x10^3/uL (0.2-0.8); MONOCYTES % (AUTO) 10 % (2-9); NEUTROPHILS # (AUTO) 4.97 x10^3/uL (1.8-6.8); NEUTROPHILS % (AUTO) 55 % (42-75); PLATELET COUNT 257 x10^3/uL (130-400); RED BLOOD COUNT 4.46 x10^6/uL (4.38-5.82); RED CELL DISTRIBUTION WIDTH 14.5 % (9.4-14.8)
[2019-09-25 21:26] LABS: HCT (SEDRATE) 41.6 % (39.2-51.8)
[2019-09-25] MEDS: HYDROmorphone 1 MG/ML, 1ML INJ IVPush PRN ×2 (21:29→23:01)
[2019-09-25 21:38] LABS: ALBUMIN 4.2 g/dL (3.4-5.0); ANION GAP 7 mmol/L (5-15); CHLORIDE 106 mmol/L (98-107)
[2019-09-25 21:47] LABS: ALANINE AMINOTRANSFERASE 36 U/L (12-78); ALKALINE PHOSPHATASE 76 U/L (45-117); BILIRUBIN,TOTAL 0.7 mg/dL (0.2-1.0); CREATININE 1.14 mg/dL (0.7-1.3); TOTAL PROTEIN 8.2 g/dL (6.4-8.2)
[2019-09-25] MEDS ORDERED: LORazepam 2 MG/ML, 1ML IVPush ONE (22:30)
[2019-09-25] MEDS ORDERED: SODIUM CHLORIDE 0.9% 1,000ML IVBOLUS ONE (22:30)
[2019-09-25] MEDS ORDERED: LORazepam 2 MG/ML, 1ML ONE (22:33)
--- NOTE | 2019-09-25 23:50 | NUR ---
Patient in MRI
--- NOTE | 2019-09-26 01:03 | NUR ---
Patient returned from MRI.
[2019-09-26] MEDS ORDERED: GADOTERATE 10 MMOL/20 ML SYR ONE (01:09)
[2019-09-26] MEDS ORDERED: HYDROmorphone 1 MG/ML, 1ML INJ ONE (01:14)
[2019-09-26] MEDS ORDERED: ONDANSETRON 2MG/ML, 2ML ONE (01:14)
[2019-09-26] MEDS ORDERED: ONDANSETRON 2MG/ML, 2ML IVPush ONE (01:30)
[2019-09-26] MEDS ORDERED: HYDROmorphone 2 MG/ML, 1ML IVPush PRN (01:30)
--- NOTE | 2019-09-26 01:46 | NUR ---
Patient states he felt nauseous after the MRI and in more pain. Medicated patient per oct.
[2019-09-26 02:18] VITALS: BP 135/71
[2019-09-26] MEDS ORDERED: DIPHENHYDRAMINE 50 MG/ML, 1ML ONE (02:43)
--- NOTE | 2019-09-26 02:55 | NUR ---
Discharge instructions given. All questions and concerns addressed. Patient ambulatory with a steady gait. Belongings with patient.
[2019-09-26] MEDS ORDERED: DIPHENHYDRAMINE 50 MG/ML, 1ML IVPush ONE (03:00)
== END 2019-09-26 02:56 | disposition home or self-care (01) ==
LOC: ED 22:29
DX: G89.29 Other chronic pain (principal); M54.5 Low back pain; R19.7 Diarrhea, unspecified; B34.9 Viral infection, unspecified; I10 Essential (primary) hypertension; E11.9 Type 2 diabetes mellitus without complications; K21.9 Gastro-esophageal reflux disease without esophagitis; Z90.49 Acquired absence of other specified parts of digestive tract
CPT/HCPCS: 36415; 71045; 72157; 72158; 80053; 83605; 84145; 85025; 85651; 86140; 87040; 87400; 96374; 96375; 96376; 99284; A9575; J1170; J1200; J2060; J2405; J7030

== ENCOUNTER 2019-09-28 15:48 | Emergency (ER) | payer MEDICARE ==
[~2019-09-28] VITALS: Ht 175.3 cm; Wt 80.6 kg
[~2019-09-28 15:48] MED LIST changes: +ONDA-89 PO; -ONDA4TAB12 PO
[2019-09-28 16:02] VITALS: BP 118/94
[2019-09-28] MEDS ORDERED: IBUPROFEN 800 MG TABLET PO STA (17:05)
[2019-09-28] MEDS ORDERED: ALBUTEROL/IPRATROPIUM 2.5MG/0.5MG, 3 ML ONE (17:08)
[2019-09-28] MEDS ORDERED: ALBUTEROL/IPRATROPIUM 2.5MG/0.5MG, 3 ML NPPB ONE (17:30)
[2019-09-28] MEDS ORDERED: IBUPROFEN 200 MG TABLET ONE (17:32)
== END 2019-09-28 18:12 | disposition home or self-care (01) ==
LOC: ED 18:00
DX: J45.31 Mild persistent asthma with (acute) exacerbation (principal); J20.8 Acute bronchitis due to other specified organisms; I10 Essential (primary) hypertension; E11.9 Type 2 diabetes mellitus without complications; K21.9 Gastro-esophageal reflux disease without esophagitis
CPT/HCPCS: 71046; 94640; 99283; J7620

== ENCOUNTER 2019-11-16 16:55 | Emergency (ER) | payer MEDICARE ==
[~2019-11-16] VITALS: Ht 175.3 cm; Wt 84.3 kg
--- NOTE | 2019-11-16 17:06 | NUR ---
TO ED ROOM 17 PER W/C
[2019-11-16] MEDS ORDERED: DIAZEPAM 5 MG/ML, 2ML IV ONE (18:00)
--- NOTE | 2019-11-16 18:01 | NUR ---
PT A&OX4, RESP EVEN & UNLABORED, SPEECH CLEAR, SKIN WNL. C/O LOWER BACK PAIN RADIATING DOWN BOTH LEGS. PAIN STARTED THIS AFTERNOON, WHILE IN SHOWER AND AFTER OCCUPATIONAL THERAPY. BACK SURGERY 09/2019 AT [facility], PRIOR BACK SURGERY 2015, "A LOT OF HARDWARE BACK THERE" "FROM PELVIS TO T-10". DILAUDID 4MG AND TYLENOL 500MG AT NOON TODAY.
[2019-11-16] MEDS ORDERED: DIAZEPAM 5 MG/ML, 2ML ONE (18:08)
[2019-11-16 18:16] LABS: BASOPHILS # (AUTO) 0.02 x10^3/uL (0-0.1); BASOPHILS % (AUTO) 0 % (0-1); EOSINOPHILS # (AUTO) 0.21 x10^3/uL (0-0.4); EOSINOPHILS % (AUTO) 2 % (1-7); LYMPHOCYTES # (AUTO) 3.68 x10^3/uL (1-3.4); LYMPHOCYTES % (AUTO) 38 % (22-44); MD NO; MEAN CORPUSCULAR HEMOGLOBIN 30.4 pg (27.5-34.5); MEAN CORPUSCULAR HGB CONC 33.2 g/dL (33.2-36.2); MEAN CORPUSCULAR VOLUME 91.3 fL (81-97); MEAN PLATELET VOLUME 7.5 fL (7.4-10.4); MONOCYTES # (AUTO) 0.76 x10^3/uL (0.2-0.8); MONOCYTES % (AUTO) 8 % (2-9); NEUTROPHILS # (AUTO) 4.96 x10^3/uL (1.8-6.8); NEUTROPHILS % (AUTO) 52 % (42-75); PLATELET COUNT 351 x10^3/uL (130-400); RED BLOOD COUNT 3.98 x10^6/uL (4.38-5.82); RED CELL DISTRIBUTION WIDTH 15.1 % (9.4-14.8)
[2019-11-16 18:19] LABS: ALANINE AMINOTRANSFERASE 55 U/L (12-78); ALBUMIN 3.7 g/dL (3.4-5.0); ANION GAP 5 mmol/L (5-15); CALCIUM 8.9 mg/dL (8.5-10.1); CHLORIDE 106 mmol/L (98-107); CREATININE 0.78 mg/dL (0.7-1.3)
[2019-11-16 18:21] LABS: ALKALINE PHOSPHATASE 109 U/L (45-117); BILIRUBIN,TOTAL 0.1 mg/dL (0.2-1.0); TOTAL PROTEIN 7.6 g/dL (6.4-8.2)
[2019-11-16] MEDS ORDERED: SODIUM CHLORIDE FLUSH 10ML SYR IVF ONE (18:30)
--- NOTE | 2019-11-16 18:31 | NUR ---
IV ATTEMPTED X2. WILL SEEK U/S IV ASSISTANCE. PT NOTIFIED OF NEED FOR URINE SPECIMEN.
--- NOTE | 2019-11-16 19:02 | NUR ---
ULTRASOUND IV ATTEMPTED X2 PER YORDY HERNANDEZ - UNSUCCESSFUL. NANCY BARCENAS NOW BS FOR U/S IV ATTEMPT
--- NOTE | 2019-11-16 19:12 | NUR ---
PT REPORT TO NANCY WIGGINS. PT CARE TRANSFERRED.
--- NOTE | 2019-11-16 19:18 | NUR ---
[place] rn:multiple unsuccessful iv attempts on pt. This rn at bedside to place iv. Pt tolerated well. Main rn at bedside to medicate.
--- NOTE | 2019-11-16 19:37 | NUR ---
Report received from NANCY Braxton. This RN to assume care. Medicated patient per mar. Patient to MRI.
[2019-11-16 20:24] LABS: MICROSCOPIC NOT IND
[2019-11-16] MEDS ORDERED: OMEG1CAP23 PO (20:25)
[2019-11-16] MEDS ORDERED: BACL-19 PO (20:25)
[2019-11-16] MEDS ORDERED: GABA-827 PO (20:25)
[2019-11-16] MEDS ORDERED: TRAM50TA2 PO (20:25)
[2019-11-16] MEDS ORDERED: NALO4SPR NAS (20:25)
[2019-11-16] MEDS ORDERED: IPRA3AMP30 INH (20:25)
[2019-11-16] MEDS ORDERED: hydromorphone PO (20:25)
[2019-11-16] MEDS: HYDROmorphone 2 MG/ML, 1ML IVPush PRN ×2 (20:35→22:27)
[2019-11-16] MEDS ORDERED: HYDROmorphone 1 MG/ML, 1ML INJ ONE ×2 (20:39→22:25)
[2019-11-16 20:47] LABS: CULTURE INDICATED? NO
--- NOTE | 2019-11-16 20:59 | NUR ---
MRI called and advised patient was having pain and unable to sit still. Admin meds per oct.
--- NOTE | 2019-11-16 21:00 | NUR ---
Patient's IV infiltrated. NANCY Jose to establish new IV via US in MRI.
--- NOTE | 2019-11-16 21:12 | NUR ---
[place] rn: new iv established and medical supply technician initiating contrast mri.
[2019-11-16] MEDS ORDERED: GADOTERATE 10 MMOL/20 ML SYR ONE (21:18)
--- NOTE | 2019-11-16 21:40 | NUR ---
Patient still in MRI.
--- NOTE | 2019-11-16 21:45 | NUR ---
Patient returned from MRI. C/o 06/02 pain.
[2019-11-16 22:26] VITALS: BP 116/76
[2019-11-16 23:37] LABS: HCT (SEDRATE) 36.3 % (39.2-51.8)
== END 2019-11-17 00:21 | disposition home or self-care (01) ==
LOC: ED 22:38
DX: M54.5 Low back pain (principal); I10 Essential (primary) hypertension; J45.909 Unspecified asthma, uncomplicated; E11.9 Type 2 diabetes mellitus without complications; G43.909 Migraine, unspecified, not intractable, without status migrainosus; K21.9 Gastro-esophageal reflux disease without esophagitis; Z90.49 Acquired absence of other specified parts of digestive tract; Z90.89 Acquired absence of other organs
CPT/HCPCS: 36415; 72157; 72158; 80053; 81003; 85025; 85651; 86140; 96374; 96375; 96376; 99285; A9575; J1170; J3360

== ENCOUNTER 2020-10-02 19:22 | Emergency (ER) | payer OTHER, MEDICARE ==
[~2020-10-02] VITALS: Ht 175.3 cm; Wt 79.7 kg
[~2020-10-02 19:22] MED LIST changes: +ASCO100018 PO; -ASCO10004 PO; +BACL-19 PO; -CIPR2.5D EACHEYE; +CIPR2.5D2 EACHEYE; -CIPR500T3 PO; +CIPR500T4 PO; -CYCL-259 PO; +CYCL10TA2 PO; -DICY20TA3 PO; +DICY20TA4 PO; -HYDR-3245 PO; +HYDR-3248 PO; -HYDR-36 PO; +HYDR1TAB53 PO; +IPRA3AMP30 INH; +MELA3TAB31 PO; -MELA3TAB56 PO; +NALO4SPR NAS; +OMEG1CAP23 PO; -OXYC-302 PO; +OXYC1TAB14 PO; -PANT40TA5 PO; +PANT40TA6 PO; +TRAM50TA2 PO; +hydromorphone PO
--- NOTE | 2020-10-02 21:30 | NUR ---
LATE ENTRY D/T PT CARE: PT CAME INTO ED FOR LEFT SIDED NECK PAIN AND NUMBNESS DOWN BILATERAL LEGS. PT REPORTS IT STARTING TODAY BUT DOES HAVE A HISTORY OF SPINAL SURGERIES. PT AMBULATORY WITH A SMOOTH AND STEADY GAIT. SITTING UP IN ROOM, APPEARS COMFORTABLE, PLACED ON SPO2/BP MONITORING. WCTM.
[2020-10-02 22:07] LABS: BASOPHILS % (AUTO) 1 % (0-1); EOSINOPHILS % (AUTO) 1 % (1-7); LYMPHOCYTES % (AUTO) 40 % (22-44); MEAN CORPUSCULAR HEMOGLOBIN 31.8 pg (27.5-34.5); MEAN CORPUSCULAR HGB CONC 34.1 g/dL (33.2-36.2); MEAN PLATELET VOLUME 7.8 fL (7.4-10.4); MONOCYTES % (AUTO) 5 % (2-9); NEUTROPHILS % (AUTO) 55 % (42-75); PLATELET COUNT 288 x10^3/uL (130-400); RED BLOOD COUNT 4.81 x10^6/uL (4.38-5.82); RED CELL DISTRIBUTION WIDTH 13.9 % (9.4-14.8)
[2020-10-02 22:10] LABS: MD NO
--- NOTE | 2020-10-02 22:11 | NUR ---
PT SITTING UP IN CHAIR, NAD, DENIES ADDITIONAL NEEDS AT THIS TIME, APPEARS COMFORTABLE, WAITING FOR LAB RESULTS. WCTM.
[2020-10-02 22:15] LABS: ALBUMIN 4.8 g/dL (3.4-5.0); ANION GAP 6 mmol/L (5-15); CALCIUM 9.3 mg/dL (8.5-10.1); CHLORIDE 108 mmol/L (98-107)
[2020-10-02 22:20] LABS: ALANINE AMINOTRANSFERASE 30 U/L (12-78); ALKALINE PHOSPHATASE 78 U/L (45-117); BILIRUBIN,TOTAL 0.3 mg/dL (0.2-1.0); TOTAL PROTEIN 9.1 g/dL (6.4-8.2); TROPONIN I < 0.015 ng/mL (0.000-0.045)
[2020-10-02 23:14] VITALS: BP 140/90
--- NOTE | 2020-10-02 23:15 | NUR ---
Patient given discharge instructions and they have confirmed that they understand the instructions. Patient ambulatory with steady gait. NAD, DENIES ADDITIONAL QUESTIONS OR NEEDS AT THIS TIME. NO PERSONAL BELONGINGS LEFT IN ROOM AFTER DC.
== END 2020-10-02 23:33 | disposition home or self-care (01) ==
LOC: ED 22:47
DX: S16.1XXA Strain of muscle, fascia and tendon at neck level, initial encounter (principal); R20.0 Anesthesia of skin; I10 Essential (primary) hypertension; E11.9 Type 2 diabetes mellitus without complications; K21.9 Gastro-esophageal reflux disease without esophagitis; J45.909 Unspecified asthma, uncomplicated; Z90.89 Acquired absence of other organs; Z90.49 Acquired absence of other specified parts of digestive tract; X58.XXXA Exposure to other specified factors, initial encounter; Y93.89 Activity, other specified; Y92.89 Other specified places as the place of occurrence of the external cause; Y99.8 Other external cause status
CPT/HCPCS: 36415; 72125; 80053; 84484; 85025; 93005; 99285